=== PATIENT | male | born 1985 | race Caucasian/White ===

== ENCOUNTER 2020-03-18 16:51 | Outpatient (REF) | payer BC, MEDICAID, SELFPAY | END 2020-03-18 16:52 | disposition home or self-care (01) | LOC: HO.LAB 16:51 | PROVIDERS: PCP Internal Medicine; Visit Provider Internal Medicine | DX: Z20.828 Contact with and (suspected) exposure to other viral communicable diseases (principal) | CPT/HCPCS: C9803; U0003 ==

== ENCOUNTER → 2022-01-09 13:35 | Outpatient (BNVA) | payer SELFPAY | PROVIDERS: PCP Internal Medicine; Visit Provider Physician Assistant Medical | DX: Z02.79 Encounter for issue of other medical certificate (principal) ==

== ENCOUNTER 2022-09-18 14:31 | Emergency (ER) | payer OTHER, SELFPAY ==
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
[2022-09-18 14:43] VITALS: BP 133/70; BP 133/84; PULSE 85; PULSE 88; RESP 18; TEMP 36.4; O2SAT 96; O2SAT 98; BMI 36.5
== END 2022-09-18 16:32 | disposition home or self-care (01) ==
PROVIDERS: Emergency Provider Emergency Medicine; PCP Internal Medicine
DX: S13.4XXA Sprain of ligaments of cervical spine, initial encounter (principal); S29.012A Strain of muscle and tendon of back wall of thorax, initial encounter; V43.52XA Car driver injured in collision with other type car in traffic accident, initial encounter; Y93.89 Activity, other specified; Y92.414 Local residential or business street as the place of occurrence of the external cause; Y99.9 Unspecified external cause status
CPT/HCPCS: 72040; 72070; 99282; 99283

== ENCOUNTER 2023-02-01 15:53 | Outpatient (AMB) | payer OTHER, SELFPAY ==
[2023-02-01 16:13] VITALS: BP 110/74; PULSE 95; RESP 17; O2SAT 98; BMI 37.9
--- NOTE | 2023-02-01 16:13 | A.OFFPC_ITS ---
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 Pt has over more than 10 years without seing a PCP. 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 Accompanied by: Self / Same As Patient Allergies No Known Allergies [No Known Allergies*] Allergy (Verified 02/01/23 16:56) Medication List - Last Reconciled 02/01/23 by Puneet Michelle MD cyclobenzaprine 10 mg PO TID naproxen (Naprosyn) 500 mg PO BID Tobacco use date assessed: 02/01/23 Dental Screening Dental Screen Date: 02/01/23 Did you have a dental visit in the last 12 months?: Yes Did you have a dental problem in the last 6 months where you did not have access to dental care?: No Was dental information given to patient?: Patient has dentist HPI Executive Director Request PE HPI Details Patient comes in today for his annual physical examination and to reestablish care - He was last seen for his one and only visit here back on 12/04/2018 Patient states that he has been experiencing recurrent left knee pain for over a month now Does not recall any recent injury or trauma to his knee Also relates experiencing on and off sharp pains in his left testicle/scrotum lately - states that these occur randomly without any pattern and with no predilection to time of day States that the pain often lasts for about 2 hours before subsiding He has not noticed any swelling of his left testicle or scrotum lately, even when the pain is present States that the pain is also relieved somewhat when he takes his Cyclobenzaprine He denies any dysuria or pain or burning sensation when urinating He denies any urinary frequency or dysuria Adds that he's had a recurrent cough for over 2 weeks as well Cough is mostly non-productive and states that he has been taking OTC Dayquil PRN with only temporary relief He denies any fever or sore throat; denies any headaches or dizziness Denies any chest pains, no shortness of breath No nausea /vomiting, no abdominal pain No change in bowel habits noted PFSH Medical History (Updated 02/03/23 @ 07:20 by Puneet Michelle MD) Obesity (BMI 30-39.9) Cholecystitis without cholelithiasis Surgical History (Updated 02/03/23 @ 07:04 by Puneet Michelle MD) Hx laparoscopic cholecystectomy (~2017) Family History (Updated 02/03/23 @ 07:07 by Puneet Michelle MD) Father Diabetes mellitus Mother Anemia Social History (Updated 02/03/23 @ 07:07 by Puneet Michelle MD) Housing: House Patient Tobacco Use Status: Former Tobacco user Tobacco use type: Cigarette Years Smoked: 3 - quit in 2007 e-Cigarette/Vaping Use: Never Used service: No Current occupational status: employed Current occupation: [employer] Cognitive needs: No Hearing needs: No Vision needs: No Questionnaire PHQ-9 Over the last 2 weeks, how often have you been bothered by any of the following problems? 1. Little interest or pleasure in doing things: not at all 2. Feeling down, depressed, or hopeless: not at all 3. Trouble falling or staying asleep, or sleeping too much: not at all 4. Feeling tired or having little energy: not at all 5. Poor appetite or overeating: not at all 6. Feeling bad about yourself - or that you are a failure or have let yourself or your family down: not at all 7. Trouble concentrating on things, such as reading the newspaper or watching television: not at all 8. Moving or speaking so slowly that other people could have noticed. Or the opposite - being so fidgety or restless that you have been moving around a lot more than usual: not at all 9. Thoughts that you would be better off or of hurting yourself in some way: not at all Total score: 0 Depression Screening Interpretation: Negative Depression Screening Done: Yes 42745 - PHQ-9 Billing: Yes Source: Developed by Drs. Regan Padilla, Jenny Blakely, Rosendo Amador and colleagues, with an educational teagan from [employer]. Thrive Questionnaire Date Thrive assessed: 02/01/23 I am a: Patient What is your living situation today?: I have a steady place to live Within the past 12 months, did the food you bought not last and you didn't have the money to get more?: Never true Within the past 12 months, did you worry whether your food would run out before you got money to buy more?: Never true Do you have trouble paying for medicines?: No Do you have trouble getting transportation to medical appointments?: No Do you have trouble paying your heating and electricity bill?: No Do you have trouble taking care of your child, family member or friend?: No Do you have trouble with day-to-day activities such as bathing, preparing meals, shopping, managing finances, etc.?: No Are you currently unemployed and looking for a job?: No Are you interested in more education?: No Please select the resources that you would like help with: None Currently or been in a relationship where the following occur: no concerns reported AUDIT C Alcohol Use Questionnaire (AUDIT-C) 1. How often do you have a drink containing alcohol?: Monthly or less 2. How many drinks containing alcohol do you have on a typical day when you are drinking?: 1 or 2 3. How often do you have six or more drinks on one occasion?: Never Total Score: 1 Score Reviewed/Action Taken: Yes IZZY-7 AMB Questionnaire IZZY-7 Date IZZY - 7 assessed: 02/01/23 Feeling nervous, anxious, or on edge: 0 = Not at all Not being able to stop or control worryin = Not at all Worrying too much about different things: 0 = Not at all Trouble relaxin = Not at all Being so restless that it is hard to sit still: 0 = Not at all Becoming easily annoyed or irritable: 0 = Not at all Feeling afraid as if something awful might happen: 0 = Not at all Total IZZY-7 score (0-4 normal; 5-9 mild; 10-14 moderate; 15-21 severe): 0 Source: Developed by Drs. Regan Padilla, Jenny Blakely, Rosendo Amador and colleagues, with an educational teagan from [employer]. IZZY-7 Assessment Billing IZZY-7 Assessment Tool: IZZY-7 Assessment 22385 Review of Systems Const Denies chills, Denies fatigue, Denies fever(s), Denies headache(s), Denies malaise and Denies weakness Eyes Denies blurry vision, Denies change in vision, Denies irritation and Denies itchy eyes ENT Denies dysphagia, Denies dizziness, Denies otalgia, Denies headache(s), Denies nasal congestion, Denies neck pain, Denies odynophagia and Denies sore throat Card Denies chest pain, Denies rapid heart rate, Denies irregular heart rhythm, Denies palpitations and Denies dyspnea Resp Denies chest congestion, Reports cough (non-productive ), Denies dyspnea and Denies wheezing GI Denies abdominal pain, Denies bloating, Denies constipation, Denies dysphagia, Denies heartburn, Denies diarrhea, Denies nausea, Denies odynophagia and Denies vomiting Denies hematuria, Denies difficulty urinating, Denies dysuria, Reports testicular pain (over he left side - recurrent, sharp - see HPI for detaisl), Denies urinary frequency and Denies urinary urgency Musc Denies back pain, Denies arthralgias, Denies joint swelling, Denies muscle weakness and Denies neck pain Skin/Breast Denies change in pigmentation, Denies lesions, Denies rash and Denies unusual bruising Neuro Denies dizziness, Denies headache(s), Denies paresthesias and Denies weakness Endo Denies fatigue and Denies palpitations Aller/Immun Denies itchy eyes and Denies wheezing Physical exam (Primary Care) Vital Signs: Last Vital Signs Pulse 95 02/01/23 16:13 Resp 17 02/01/23 16:13 BP 110/74 02/01/23 16:13 Pulse Ox 98 02/01/23 16:13 Oxygen Delivery Method Room Air 02/01/23 16:13 BMI result Body Mass Index 37.9 Tobacco/Smoking Status: Tobacco use Status Tobacco use date assessed 02/01/23 02/01/23 16:31 Patient Tobacco Use Status Never used Tobacco 02/01/23 16:31 e-Cigarette/Vaping Use Never Used 02/01/23 16:31 PHQ-9: PHQ-9 Score PHQ-9: Total score 0 02/01/23 23:39 Depression Screening Interpretation: Negative Thrive Assessment: Date of Thrive Assessment Date Thrive assessed 02/01/23 02/01/23 16:38 Currently or been in a relationship where the following occur: no concerns reported Const General: no acute distress, alert and awake Orientation/consciousness: patient oriented x3 [facility] Head: Yes normocephalic and Yes atraumatic Ears: external ears normal, TM's normal bilaterally and EAC's normal General nose exam: No nasal discharge present Face and sinus: Yes normal facial exam and Yes sinuses nontender Teeth and gingiva: dentition normal Throat: Yes posterior oropharynx normal and Yes abnormal tonsil (tonsils are slightly enlarged / prominent bilaterally) Eyes Eyelids: Yes eyelids normal Conjunctivae: conjunctivae normal Pupils: Equal, round and reactive pupils present EOM: EOMs intact bilaterally Neck Neck: Yes no lymphadenopathy and Yes supple Thyroid: Thyroid normal Resp Auscultation: clear to auscultation bilaterally, no rales and no wheezes Cardio Rate: regular rate Rhythm: regular rhythm Heart sounds: no murmurs GI Palpation (GI): Soft to palpation, nontender and No hepatosplenomegaly present Auscultation: normal bowel sounds General: Yes no CVA tenderness Penis: circumcised Scrotum: scrotum normal, testes descended bilaterally, no masses and no scrotal swelling Testes: Testes normal, no epidiymal tenderness, no testicular mass, no testicular swelling and no testicular tenderness Back/Spine/Pelvis Back: no CVA tenderness Thoracic/Lumbar Spine: thoracic and lumbar spine normal to inspection Skin Lesions: no lesions Rashes: no rashes Neuro General: patient oriented x3, moves all extremities, no focal motor deficits and CN's II-XI intact bilaterally Cranial nerves: Yes Equal, round and reactive pupils present Cognition (Neuro): normal cognition Gait exam (Neuro): Normal gait present Extrem General: Yes no clubbing, cyanosis or edema Assessment and Plan Assessment & Plan (1) Annual physical exam: Code(s): Z00.00 - Encounter for general adult medical examination without abnormal findings Plan: Check labs (2) Left testicular pain: Code(s): N50.812 - Left testicular pain Plan: Patient is advised that his current testicular exam is normal and that the recurrent pain that he has been experiencing in his left testicle is most likely due to muscle spasm around his inguinal area Advised that there is no palpable mass or swelling in his testicle and that imaging studies will likely not be helpful at this time Is instructed to get his labs done JUAN and advised that if his urinalysis or labs show anything unusual that might be related to his current symptoms, then we can send him then for further tests for exams for further evaluation He is though advised to call if his symptoms persist or get worse and we can consider referring him to urology for further evaluation then (3) Tonsillar enlargement: Code(s): J35.1 - Hypertrophy of tonsils Plan: Patient denies any sore throat or dysphagia - advised that his slight bilateral tonsillar enlargement/prominence her most likely due to a recent viral infection and should gradually resolve on their own after some time (4) Cough: Code(s): R05.9 - Cough, unspecified Qualifiers: Cough type: acute Qualified Code(s): R05.1 - Acute cough Plan: Advised this is most likely due to a recent viral respiratory tract infection He can continue OTC DayQuil or OTC cough medications PRN for symptomatic relief; is also advised to call if his cough persists or gets worse over the next couple of weeks (5) Obesity (BMI 30-39.9): Code(s): E66.9 - Obesity, unspecified Plan: Reinforced diet/exercise as tolerated/ lose weight Plan Follow up in 3 months Orders: Orders Comprehensive [place]. Panel Fast 02/02/23 Z00.00 - Encounter for general adult medical examination without abnormal findings TSH reflex Free T4 02/02/23 E78.00 - Pure hypercholesterolemia, unspecified, Z00.00 - Encounter for general adult medical examination without abnormal findings Vitamin D 25-OH Total 02/02/23 E55.9 - Vitamin D deficiency, unspecified, Z00.00 - Encounter for general adult medical examination without abnormal findings Complete Blood Count Auto Diff 02/02/23 Z00.00 - Encounter for general adult medical examination without abnormal findings Lipid Panel 02/02/23 E78.00 - Pure hypercholesterolemia, unspecified, Z00.00 - Encounter for general adult medical examination without abnormal findings UA CC w/rflx Micro + Cult 02/02/23 R30.0 - Dysuria, Z00.00 - Encounter for general adult medical examination without abnormal findings Erythrocyte Sedimentation Rate 02/02/23 N50.812 - Left testicular pain, Z00.00 - Encounter for general adult medical examination without abnormal findings Coding Level of Care Code New Pt Prev Care 18-39yr([id number] Diagnoses Annual physical exam Z00.00 Left testicular pain N50.812 Tonsillar enlargement J35.1 Acute cough R05.1 Cough type: acute Obesity (BMI 30-39.9) E66.9 Additional Codes IZZY-7 Assessment Billing - IZZY-7 Assessment Tool: IZZY-7 Assessment [id number] ([id number])
== END 2023-02-01 17:06 | disposition home or self-care (01) ==
PROVIDERS: PCP Internal Medicine; Visit Provider Internal Medicine
DX: Z00.00 Encounter for general adult medical examination without abnormal findings (principal); N50.812 Left testicular pain; J35.1 Hypertrophy of tonsils; R05.1 Acute cough; E66.9 Obesity, unspecified
CPT/HCPCS: 99385

== ENCOUNTER 2023-02-02 07:30 | Outpatient (REF) | payer OTHER, SELFPAY ==
[2023-02-02 09:48] LABS: Anion Gap 13 (12-20); Blood Urea Nitrogen 16 mg/dL (9-16); Calcium 9.1 mg/dL (8.4-10.2); Carbon Dioxide 22 mmol/L (22-29); Chloride 110 mmol/L (96-108); Estimated Glomerular Filt Rate > 60; Potassium 3.9 mmol/L (3.3-5.1); Sodium 141 mmol/L (135-145)
== END 2023-02-02 07:31 | disposition home or self-care (01) ==
LOC: HO.LAB 07:30
PROVIDERS: PCP Internal Medicine; Visit Provider Internal Medicine
DX: Z00.00 Encounter for general adult medical examination without abnormal findings (principal); N50.812 Left testicular pain; E78.00 Pure hypercholesterolemia, unspecified; R30.0 Dysuria; E55.9 Vitamin D deficiency, unspecified
CPT/HCPCS: 36415; 80051; 82310; 82565; 84520

== ENCOUNTER 2023-04-10 19:14 | Emergency (ER) | payer OTHER, SELFPAY ==
--- NOTE | ~2023-04-10 | XR_ITS ---
EXAMINATION: XR KNEE, RIGHT CLINICAL INFORMATION: Pain COMPARISON: Previous x-ray from 1999 and TECHNIQUE: Four views of the right knee. FINDINGS: Bone alignment is normal. No fracture or dislocation. 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 Joint spaces are normal. Soft tissues are normal. XR/XR knee RT 4V IMPRESSION: No acute findings.
--- NOTE | ~2023-04-10 | XR_ITS ---
EXAMINATION: XR KNEE, LEFT CLINICAL INFORMATION: Pain COMPARISON: None available. TECHNIQUE: Four views of the left knee. FINDINGS: No fracture or joint effusion. Alignment is anatomic. Joint spaces are maintained. No abnormal soft tissue calcification. XR/XR knee LT 4V IMPRESSION: Normal left knee.
--- NOTE | ~2023-04-10 | XR_ITS ---
EXAMINATION: XR ANKLE, RIGHT CLINICAL INFORMATION: Pain COMPARISON: None available. TECHNIQUE: AP, lateral, and mortise views of the right ankle. FINDINGS: No fracture. Alignment is anatomic. No erosions. Joint spaces are maintained. Soft tissues are normal. XR/XR ankle RT 2V IMPRESSION: Normal right ankle.
--- NOTE | ~2023-04-10 | XR_ITS ---
EXAMINATION: XR FOOT, RIGHT CLINICAL INFORMATION: Pain COMPARISON: None available. TECHNIQUE: AP, lateral, and oblique views of the right foot. FINDINGS: The bones and soft tissues are normal. No fracture. Alignment is anatomic. Joint spaces are maintained. XR/XR foot RT 2V IMPRESSION: Normal right foot.
[2023-04-10 19:35] VITALS: BP 134/84; PULSE 85; RESP 18; TEMP 36.7; O2SAT 97; BMI 36.4
--- NOTE | 2023-04-10 19:38 | ED.GENADULT ---
HPI - General Adult General Chief complaint: General Medical Stated complaint: florecita knee and hand pain Time Seen by Provider: 04/10/23 21:06 Source: patient, RN notes reviewed and old records reviewed Mode of arrival: ambulatory Limitations: no limitations History of Present Illness HPI narrative: 37-year-old male presents for evaluation of mostly right ankle pain but also complains of bilateral knee pain Patient reports that he has had worsening knee pain for several weeks His right ankle pain started 2 weeks ago and he believes he rolled his ankle He states that he has been able to walk but has been tying his shoes titer because ?the pressure help the pain a little bit. ? 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 His pain is currently 8/10 Related Data Previous Rx's Medication Instructions Recorded cyclobenzaprine 10 mg tablet 10 mg PO TID #10 tabs 09/18/22 naproxen 500 mg tablet (Naprosyn) 500 mg PO BID #20 tabs 09/18/22 ibuprofen 600 mg tablet 600 mg PO Q6H PRN pain #20 tabs 04/10/23 Allergies Allergy/AdvReac Type Severity Reaction Status Date / Time No Known Allergies Allergy Verified 02/01/23 16:56 [No Known Allergies*] Review of Systems Constitutional: Constitutional: Denies chills and Denies fever(s) Cardiovascular: Cardiovascular: Denies chest pain and Denies dyspnea Respiratory: Respiratory: Denies cough and Denies dyspnea Gastrointestinal: Gastrointestinal: Denies abdominal pain, Denies nausea and Denies vomiting Musculoskeletal: Musculoskeletal: Denies back pain, Reports arthralgias, Reports joint swelling and Reports limited range of motion Integumentary/Breasts: Skin/Breast: Denies rash PMF Past Medical History Medical History (Updated 04/11/23 @ 00:01 by [facility]) Obesity (BMI 30-39.9) Cholecystitis without cholelithiasis Surgical History (Updated 02/03/23 @ 07:04 by Puneet Michelle MD) Hx laparoscopic cholecystectomy (~2017) Family History Family History (Updated 02/03/23 @ 07:07 by Puneet Michelle MD) Father Diabetes mellitus Mother Anemia Social History Social History (Updated 02/03/23 @ 07:07 by Puneet Michelle MD) Housing: House Patient Tobacco Use Status: Former Tobacco user Tobacco use type: Cigarette Years Smoked: 3 - quit in 2007 e-Cigarette/Vaping Use: Never Used Advance Directives: No Advance Directives Information Provided: No service: No Current occupational status: employed Current occupation: Carpentry Cognitive needs: No Hearing needs: No Vision needs: No Physical Exam ED Vital Signs: Vital Signs - 24 hr 04/10/23 19:35 04/10/23 20:43 Temperature 98.0 F Pulse Rate 85 76 Respiratory Rate 18 18 Blood Pressure 134/84 120/76 Pulse Oximetry 97 99 Oxygen Delivery Method Room Air Room Air BMI result Body Mass Index 36.4 Const General: healthy appearing, comfortable, no acute distress, alert and awake Nutritional Appearance: well nourished Orientation/consciousness: patient oriented x3 HENMT Head: Yes normocephalic and Yes atraumatic Eyes Eyelids: Yes eyelids normal Conjunctivae: conjunctivae normal Sclerae: sclerae normal Corneas: corneas normal Pupils: Equal, round and reactive pupils present EOM: EOMs intact bilaterally Neck Neck: Yes full ROM Resp Effort & Inspection: normal respiratory effort, able to speak in complete sentences and not labored GI Inspection: No distended Palpation (GI): Soft to palpation, not firm, nontender, no guarding and not rigid Skin General skin exam: elasticity normal Neuro General: patient oriented x3 Cranial nerves: Yes Equal, round and reactive pupils present and Yes Bilaterally intact EOM present Cognition (Neuro): normal cognition Extrem Other: Patient has no obvious deformities the knees bilaterally. He has good range of motion flexion extension. He has no tenderness to the right lateral malleolus of the right ankle. He does have tenderness inferior to this region. There is no significant edema. The patient remains with good range of motion. No other areas of tenderness to the right lower extremity or foot Course Course Course Narrative: RME: 37 yold female presents to the ED for bilateral knee pain and right anklke pain. Hear clicking shounds. patient states no trauma. xrayys ordered Medications Administered Discontinued Medications Generic Name Dose Route Start Last Admin Trade Name Freq PRN Reason Stop Dose Admin Ibuprofen 600 mg 04/10/23 21:14 04/10/23 21:20 Ibuprofen 600 Mg Tablet PO 04/10/23 21:15 600 mg ONCE ONE Administration Medical Decision Making Medical Decision Making [facility] Narrative: 37-year-old male presents for evaluation of chronic bilateral knee pain and more acute right ankle pain. X-rays are all negative for acute findings. He likely has a sprain right ankle and possibly overuse injury causing his right knee pain chronically. Will treat with ibuprofen Differential Diagnosis Differential Diagnoses: The differential diagnosis associated with the presentation includes Osteoarthritis Rheumatoid arthritis Ankle sprain Ankle fracture Independent Interpretation I performed an independent interpretation of an: Plain X-Ray (Agree with Radiology interpretation) Radiology Impression Discussion of test interpretation with radiology: I have reviewed the radiologist's reading. Radiologist Impression: No acute findings of the knees bilaterally or right ankle/foot Discharge Plan Discharge Clinical Impression: Bilateral chronic knee pain, Right ankle sprain Patient Disposition: Home, Self-Care Instructions: Ankle Sprain (ED) Additional Instructions: All of your x-rays were without significant findings. This includes your knees, right ankle and right foot. You likely have a right ankle sprain. Continue to use ibuprofen for pain. Elevate the leg above your heart while resting Follow-up with your primary doctor Prescriptions: New ibuprofen 600 mg tablet 600 mg PO Q6H PRN (Reason: pain) Qty: 20 0RF No Action naproxen [Naprosyn] 500 mg tablet 500 mg PO BID Qty: 20 0RF cyclobenzaprine 10 mg tablet 10 mg PO TID Qty: 10 0RF Interventions: ED Discharge Assessment Last Done: 04/10/23 21:33 Discharge Date/Time: 04/10/23 21:33
[2023-04-10 20:43] VITALS: BP 120/76; PULSE 76; RESP 18; O2SAT 99
[2023-04-10] MEDS: Ibuprofen 600 MG TABLET PO (21:20)
== END 2023-04-10 21:33 | disposition home or self-care (01) ==
PROVIDERS: Emergency Provider Student in an Organized Health Care Education/Training Program; PCP Internal Medicine
DX: M25.562 Pain in left knee (principal); M25.561 Pain in right knee; M25.571 Pain in right ankle and joints of right foot
CPT/HCPCS: 73564; 73600; 73620; 99283

== ENCOUNTER 2023-05-07 15:05 | Outpatient (AMB) | payer OTHER, SELFPAY ==
[2023-05-07 15:07] VITALS: BP 130/86; PULSE 92; O2SAT 97; BMI 38.0
--- NOTE | 2023-05-07 15:07 | A.OFFPC_ITS ---
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 Accompanied by: Self / Same As Patient Allergies No Known Allergies [No Known Allergies*] Allergy (Verified 05/07/23 15:26) Medication List - Last Reconciled 05/07/23 by Puneet Michelle MD cyclobenzaprine 10 mg PO TID ibuprofen 600 mg PO Q6H PRN Tobacco use date assessed: 05/07/23 Dental Screening Dental Screen Date: 05/07/23 Did you have a dental visit in the last 12 months?: Yes Did you have a dental problem in the last 6 months where you did not have access to dental care?: No Was dental information given to patient?: Patient has dentist HPI 3 month f/u HPI Details Patient comes in today for his follow up visit States that he has been experiencing recurrent knee pain lately - notes that the pain is mostly over the prepatellar/suprapatellar areas and mostly when he is going down some stairs Relates that he went to the ER a few weeks ago with similar complaints and had x-rays of both knees done, which reportedly came out normal He does not recall and history of injury or trauma to his knees States that he feels okay otherwise He denies any headaches or dizziness Denies any chest pains, no SOB No nausea/vomiting, no abdominal pain No change in bowel habits noted He still has not been able to get his previously ordered fasting labs done yet [facility] Medical History Obesity (BMI 30-39.9) Cholecystitis without cholelithiasis Surgical History Hx laparoscopic cholecystectomy (~2017) Family History Father Diabetes mellitus Mother Anemia Social History Housing: House Patient Tobacco Use Status: Former Tobacco user Tobacco use type: Cigarette Years Smoked: 3 - quit in 2007 e-Cigarette/Vaping Use: Never Used service: No Current occupational status: employed Current occupation: Carpentry Cognitive needs: No Hearing needs: No Vision needs: No Questionnaire PHQ-9 Over the last 2 weeks, how often have you been bothered by any of the following problems? 1. Little interest or pleasure in doing things: not at all 2. Feeling down, depressed, or hopeless: not at all 3. Trouble falling or staying asleep, or sleeping too much: not at all 4. Feeling tired or having little energy: not at all 5. Poor appetite or overeating: not at all 6. Feeling bad about yourself - or that you are a failure or have let yourself or your family down: not at all 7. Trouble concentrating on things, such as reading the newspaper or watching television: not at all 8. Moving or speaking so slowly that other people could have noticed. Or the opposite - being so fidgety or restless that you have been moving around a lot more than usual: not at all 9. Thoughts that you would be better off or of hurting yourself in some way: not at all Total score: 0 Depression Screening Interpretation: Negative Depression Screening Done: Yes 40301 - PHQ-9 Billing: Yes Source: Developed by Drs. Regan Padilla, Jenny Blakely, Rosendo Amador and colleagues, with an educational teagan from [employer]. Thrive Questionnaire Date Thrive assessed: 05/07/23 I am a: Patient What is your living situation today?: I have a steady place to live Within the past 12 months, did the food you bought not last and you didn't have the money to get more?: Never true Within the past 12 months, did you worry whether your food would run out before you got money to buy more?: Never true Do you have trouble paying for medicines?: No Do you have trouble getting transportation to medical appointments?: No Do you have trouble paying your heating and electricity bill?: No Do you have trouble taking care of your child, family member or friend?: No Do you have trouble with day-to-day activities such as bathing, preparing meals, shopping, managing finances, etc.?: No Are you currently unemployed and looking for a job?: No Are you interested in more education?: No Please select the resources that you would like help with: None Currently or been in a relationship where the following occur: no concerns reported AUDIT C Alcohol Use Questionnaire (AUDIT-C) 1. How often do you have a drink containing alcohol?: Monthly or less 2. How many drinks containing alcohol do you have on a typical day when you are drinking?: 1 or 2 3. How often do you have six or more drinks on one occasion?: Never Total Score: 1 Score Reviewed/Action Taken: Yes IZZY-7 AMB Questionnaire IZZY-7 Date IZZY - 7 assessed: 05/07/23 Feeling nervous, anxious, or on edge: 0 = Not at all Not being able to stop or control worryin = Not at all Worrying too much about different things: 0 = Not at all Trouble relaxin = Not at all Being so restless that it is hard to sit still: 0 = Not at all Becoming easily annoyed or irritable: 0 = Not at all Feeling afraid as if something awful might happen: 0 = Not at all Total IZZY-7 score (0-4 normal; 5-9 mild; 10-14 moderate; 15-21 severe): 0 Source: Developed by Drs. Regan Padilla, Jenny Blakely, Rosendo Amador and colleagues, with an educational teagan from [employer]. IZZY-7 Assessment Billing IZZY-7 Assessment Tool: IZZY-7 Assessment 54947 Review of Systems Const Denies chills, Denies fatigue, Denies fever(s) and Denies headache(s) ENT Denies dysphagia, Denies dizziness, Denies otalgia, Denies headache(s), Denies neck pain, Denies odynophagia and Denies sore throat Card Denies chest pain, Denies palpitations and Denies dyspnea Resp Denies cough and Denies dyspnea GI Denies abdominal pain, Denies constipation, Denies dysphagia, Denies heartburn, Denies diarrhea, Denies nausea, Denies odynophagia and Denies vomiting Denies dysuria, Denies nocturia and Denies urinary frequency Musc Reports arthralgias (both knees, on and off lately - see HPI) and Denies neck pain Skin/Breast Denies rash Neuro Denies dizziness and Denies headache(s) Endo Denies fatigue and Denies palpitations Physical exam (Primary Care) Vital Signs: Last Vital Signs Pulse 92 05/07/23 15:07 BP 130/86 05/07/23 15:07 Pulse Ox 97 05/07/23 15:07 Oxygen Delivery Method Room Air 05/07/23 15:07 BMI result Body Mass Index 38.0 Tobacco/Smoking Status: Tobacco use Status Tobacco use date assessed 05/07/23 05/07/23 15:13 Patient Tobacco Use Status Former Tobacco user 05/07/23 15:13 Tobacco use type Cigarette 05/07/23 15:13 e-Cigarette/Vaping Use Never Used 05/07/23 15:13 PHQ-9: PHQ-9 Score PHQ-9: Total score 0 05/07/23 15:13 Depression Screening Interpretation: Negative Thrive Assessment: Date of Thrive Assessment Date Thrive assessed 05/07/23 05/07/23 15:13 Currently or been in a relationship where the following occur: no concerns reported Const General: no acute distress and alert HENMT Ears: TM's normal bilaterally and EAC's normal Throat: Yes posterior oropharynx normal and Yes tonsils normal (no TP congestion) Neck Neck: Yes no lymphadenopathy and Yes supple Resp Auscultation: clear to auscultation bilaterally, no rales and no wheezes Cardio Rate: regular rate Rhythm: regular rhythm Heart sounds: no murmurs GI Palpation (GI): Soft to palpation, nontender and No hepatosplenomegaly present Skin Rashes: no rashes Extrem General: Yes no clubbing, cyanosis or edema Right lower extremity: knee Details: tenderness Location: of the patella Details: superiorly; no swelling Left lower extremity: knee Details: tenderness Location: of the patella Details: superiorly; no swelling Assessment and Plan Assessment & Plan (1) Bilateral knee pain: Code(s): M25.561 - Pain in right knee; M25.562 - Pain in left knee Qualifiers: Chronicity: unspecified Qualified Code(s): M25.561 - Pain in right knee; M25.562 - Pain in left knee Plan: X-rays of both knees done a few weeks ago in March 2023 came out normal, so they do not provide any helpful info as to patient's knee pain Have discussed with patient that his knee pain are likey related to his weight and may be due to bursitis, which would not normally show up on x-rays Will refer him to orthopedics for further evaluation and recommendations/josué ghotra (2) Obesity (BMI 30-39.9): Code(s): E66.9 - Obesity, unspecified Plan: Reinforced diet/exercise as tolerated/ lose weight - patient is cautioned that he has gained some weight since his last visit He was not able to get his previously ordered labs done yet - will update his lab orders and have him go and get these done JUAN Plan Follow up in 4 months Orders: Referrals Orthopedics Referral M25.561 - Pain in right knee, M25.562 - Pain in left knee Coding Level of Care Code Est Pt Level 3 (12602) Diagnoses Pain in both knees, unspecified chronicity M25.561; M25.562 Chronicity: unspecified Obesity (BMI 30-39.9) E66.9 Additional Codes IZZY-7 Assessment Billing - IZZY-7 Assessment Tool: IZZY-7 Assessment 77217 ([id number])
== END 2023-05-07 15:41 | disposition home or self-care (01) ==
PROVIDERS: PCP Internal Medicine; Visit Provider Internal Medicine
DX: M25.561 Pain in right knee (principal); E66.9 Obesity, unspecified; Z68.38 Body mass index [BMI] 38.0-38.9, adult; M25.562 Pain in left knee
CPT/HCPCS: 99213

== ENCOUNTER 2023-05-08 08:40 | Outpatient (REF) | payer OTHER, SELFPAY ==
[2023-05-08 09:05] LABS: MANUAL DIFF FLAG NO
[2023-05-08 09:34] LABS: Basophils Percent Auto 0.5 % (0-2); Eosinophils Absolute Auto 0.3 X10*3/uL (0.0-0.4); Eosinophils Percent Auto 3.6 % (0-4); Hematocrit 44.6 % (42.0-52.0); Hemoglobin 14.6 g/dl (14.0-18.0); Imm Gran Abs Auto 0.05 X10*3/uL (0.00-0.03); Imm Gran Pct Auto 0.6 % (0.0-0.4); Lymphocytes Absolute Auto 2.5 X10*3/uL (1.2-4.9); Lymphocytes Percent Auto 31.2 % (20-40); Mean Corpuscular HGB Conc 32.7 g/dl (31.0-36.0); Mean Corpuscular Hemoglobin 27.2 pg (27.0-33.0); Mean Corpuscular Volume 83.1 fL (80.0-98.0); Mean Platelet Volume 10.5 fL (9.4-12.4); Monocytes Absolute Auto 0.6 X10*3/uL (0.1-1.2); Monocytes Percent Auto 7.4 % (2-11); Neutrophils Absolute Auto 4.5 x10*3/uL (2.0-8.3); Neutrophils Percent Auto 56.7 % (45-73); Platelet Count 223 X10*3/uL (160-400); Red Blood Count 5.37 X10*6/uL (4.60-5.80); Red Cell Distribution Width 12.8 % (11.0-16.0)
[2023-05-08 09:51] LABS: Appearance Urine Clear; Color Urine Yellow; Glucose Urine UA Negative (Negative); Leukocyte Esterase Urine Negative (Negative); Nitrite Urine Negative (Negative); PH 5.5 (5.0-9.0); Specific Gravity - Urine 1.025 (1.005-1.025); Urine Blood Negative (Negative); Urine Ketones Negative (Negative); Urine Protein Negative (Neg-Trace)
[2023-05-08 10:14] LABS: Alanine Aminotransferase 58 U/L (0-40); Albumin Level 4.1 g/dL (3.5-5.0); Alkaline Phosphatase 75 U/L (39-117); Anion Gap 11 (12-20); Aspartate Amino Transferase 25 U/L (5-37); Bilirubin Total 0.4 mg/dL (0.0-1.0); Blood Urea Nitrogen 23 mg/dL (9-16); Calcium 9.5 mg/dL (8.4-10.2); Carbon Dioxide 23 mmol/L (22-29); Chloride 108 mmol/L (96-108); Cholesterol 194 mg/dL (<200); Estimated Glomerular Filt Rate > 60; Glucose Fasting 116 mg/dL (60-99); HDL Cholesterol 26 mg/dL (>40); LDL Cholesterol Calculated 130 mg/dL (<100); Potassium 3.9 mmol/L (3.3-5.1); Sodium 138 mmol/L (135-145); Total Protein 7.9 g/dL (6.5-8.0); Triglycerides 190 mg/dL (<150)
[2023-05-08 10:23] LABS: Erythrocyte Sedimentation Rate 10 MM/HR (0-15)
[2023-05-08 10:33] LABS: TSH reflex Free T4 1.44 uIU/mL (0.32-4.0); Vitamin D 25-OH Total 14.9 ng/mL (>30)
== END 2023-05-08 08:41 | disposition home or self-care (01) ==
LOC: HO.LAB 08:40
PROVIDERS: PCP Internal Medicine; Visit Provider Internal Medicine
DX: Z00.00 Encounter for general adult medical examination without abnormal findings (principal); R30.0 Dysuria; E55.9 Vitamin D deficiency, unspecified; N50.812 Left testicular pain; E78.00 Pure hypercholesterolemia, unspecified
CPT/HCPCS: 36415; 80053; 80061; 81003; 82306; 84443; 85025; 85652

== ENCOUNTER 2023-05-20 09:08 | Outpatient (AMB) | payer OTHER, SELFPAY ==
--- NOTE | 2023-05-20 09:12 | MHC.OFFVIS ---
Intake Vital Signs 05/20/23 09:13 Height 5 ft 9 in Weight 257 lb BMI 37.9 Intake Visit Reasons: New Pt - Bilateral Knee Pain Intake Note: Rosalio is a 37 year old male who presents today as a new patient with complaints of bilateral knee pain. Patient reports ongoing knee pain for about 1 year now. Pain is felt pre/Subpatellar , pain is mostly felt while going down stairs. 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 He takes ibuprofen and home exercises which has helped. Denies numbness and tingling. Allergies No Known Allergies [No Known Allergies*] Allergy (Verified 05/07/23 15:26) HPI New Pt - Bilateral Knee Pain HPI Details Rosalio is a 37 year old man who presents with complaints of ~1 year of bilateral knee pain. He complains of pain with daily activity, worse with walking or using stairs. 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 He performs some at-home exercises and takes Ibuprofen, with some relief. [facility] Medical History Obesity (BMI 30-39.9) Cholecystitis without cholelithiasis Surgical History Hx laparoscopic cholecystectomy (~2017) Family History Father Diabetes mellitus Mother Anemia Social History Housing: House Patient Tobacco Use Status: Former Tobacco user Tobacco use type: Cigarette Years Smoked: 3 - quit in 2007 e-Cigarette/Vaping Use: Never Used service: No Current occupational status: employed Current occupation: Carpentry Cognitive needs: No Hearing needs: No Vision needs: No Review of Systems Const All systems reviewed & are unremarkable except as noted in HPI and below Physical Exam Vital Signs: BMI result Body Mass Index 37.9 Const General: no acute distress, alert and awake Orientation/consciousness: patient oriented x3 HEENT Head: Yes normocephalic and Yes atraumatic Eyes EOM: EOMs intact bilaterally Resp Effort & Inspection: normal respiratory effort and able to speak in complete sentences Cardio Jugular venous distension: no JVD Skin General skin exam: turgor normal Rashes: no rashes Neuro General: patient oriented x3 Extrem Other: Left retropatellar TTP No effusion FUll ROm Psych Appearance: grossly normal Affect: normal affect Attitude: cooperative Results Reviewed Results Reviewed: I personally reviewed relevant radiographs. Nl radiographs bilateral knees Assessment & Plan Assessment & Plan (1) Anterior knee pain: Code(s): M25.569 - Pain in unspecified knee Plan: Anterior knee pain Discussed knee meachnics DOing well Can follow up if pain returns Plan Prepared for Butch Mercer MD by Doc Pimentel, medical information officer, on 05/20/23 at 9:18 AM, EST. Coding Level of Care Code New Pt Level 3 (67755) Diagnoses Anterior knee pain M25.569
[2023-05-20 09:13] VITALS: BMI 37.9
== END 2023-05-20 09:47 | disposition home or self-care (01) ==
PROVIDERS: PCP Internal Medicine; Visit Provider Orthopaedic Surgery
DX: M25.561 Pain in right knee (principal); M25.562 Pain in left knee
CPT/HCPCS: 99203

== ENCOUNTER → 2023-05-20 09:08 | Outpatient (BNVA) | payer OTHER, SELFPAY | PROVIDERS: PCP Internal Medicine; Visit Provider Orthopaedic Surgery | DX: M25.569 Pain in unspecified knee (principal) | CPT/HCPCS: 99202 ==

== ENCOUNTER 2023-10-08 10:15 | Outpatient (AMB) | payer OTHER, SELFPAY ==
[2023-10-08 10:16] VITALS: BP 118/70; PULSE 66; O2SAT 98; BMI 35.6
--- NOTE | 2023-10-08 10:16 | A.OFFPC_ITS ---
Vital Signs 10/08/23 10:16 Height 5 ft 9 in Weight 241 lb 0.8 oz BMI 35.6 BP 118/70 Blood Pressure Location Lt brachial Position Sitting Pulse 66 Pulse Source Pulse Oximeter Pulse Oximetry (%) 98 Oxygen Delivery Method Room Air Intake Visit Reasons: Follow Up Deputy Clerk Required: No Allergies No Known Allergies [No Known Allergies*] Allergy (Verified 10/08/23 10:44) Medication List - Last Reconciled 10/08/23 by Puneet Michelle MD ibuprofen 600 mg PO Q6H PRN Tobacco use date assessed: 10/08/23 Dental Screening Dental Screen Date: 05/07/23 HPI Follow Up HPI Details Patient comes in today for his follow up visit States that he currently feels okay He was seen by orthopedics for his knees back in April 2023 - was advised then to just continue with his knee strengthening exercises (which have been helping) and Ibuprofen PRN X-rays of the knees done at the time came out grossly normal Patient states that he has lost a lot of weight since his last visit and this also has apparently helped a lot with his knee issues He denies any headaches or dizziness Denies any chest pains, no SOB No nausea/vomiting, no abdominal pain No change in bowel habits noted He would also like to know how he did on his labs done back in April 2023 [facility] Medical History (Updated 10/08/23 @ 10:56 by Puneet Michelle MD) Vitamin D deficiency Mixed hyperlipidemia Impaired fasting glucose Obesity (BMI 30-39.9) Cholecystitis without cholelithiasis Surgical History (Updated 10/08/23 @ 10:56 by Puneet Michelle MD) Hx laparoscopic cholecystectomy (~2017) Family History Father Diabetes mellitus Mother Anemia Social History Housing: House Patient Tobacco Use Status: Former Tobacco user Tobacco use type: Cigarette Years Smoked: 3 - quit in 2007 e-Cigarette/Vaping Use: Never Used service: No Current occupational status: employed Current occupation: Carpentry Cognitive needs: No Hearing needs: No Vision needs: No Questionnaire Thrive Questionnaire Date Thrive assessed: 05/07/23 AUDIT C Alcohol Use Questionnaire (AUDIT-C) 1. How often do you have a drink containing alcohol?: Monthly or less 2. How many drinks containing alcohol do you have on a typical day when you are drinking?: 1 or 2 3. How often do you have six or more drinks on one occasion?: Never Total Score: 1 Score Reviewed/Action Taken: Yes IZZY-7 AMB Questionnaire IZZY-7 Date IZZY - 7 assessed: 05/07/23 Source: Developed by Drs. Regan Padilla, Jenny Blakely, Rosendo Amador and colleagues, with an educational teagan from [employer]. Review of Systems Const Denies chills, Denies fatigue, Denies fever(s) and Denies headache(s) ENT Denies dysphagia, Denies dizziness, Denies otalgia, Denies headache(s), Denies neck pain, Denies odynophagia and Denies sore throat Card Denies chest pain, Denies palpitations and Denies dyspnea Resp Denies cough and Denies dyspnea GI Denies abdominal pain, Denies constipation, Denies dysphagia, Denies heartburn, Denies diarrhea, Denies nausea, Denies odynophagia and Denies vomiting Denies dysuria, Denies nocturia and Denies urinary frequency Musc Denies back pain, Reports arthralgias (over both knees - feels that they have improved lately) and Denies neck pain Skin/Breast Denies rash Neuro Denies dizziness and Denies headache(s) Endo Denies fatigue and Denies palpitations Physical exam (Primary Care) Vital Signs: Last Vital Signs Pulse 66 10/08/23 10:16 BP 118/70 10/08/23 10:16 Pulse Ox 98 10/08/23 10:16 Oxygen Delivery Method Room Air 10/08/23 10:16 BMI result Body Mass Index 35.6 Tobacco/Smoking Status: Tobacco use Status Tobacco use date assessed 10/08/23 10/08/23 10:17 Patient Tobacco Use Status Former Tobacco user 10/08/23 10:17 Tobacco use type Cigarette 10/08/23 10:17 e-Cigarette/Vaping Use Never Used 10/08/23 10:17 Thrive Assessment: Date of Thrive Assessment Date Thrive assessed 05/07/23 10/08/23 10:17 Const General: no acute distress and alert HENMT Ears: TM's normal bilaterally and EAC's normal Throat: Yes posterior oropharynx normal and Yes tonsils normal (no TP congestion) Neck Neck: Yes no lymphadenopathy and Yes supple Thyroid: Thyroid normal Resp Auscultation: clear to auscultation bilaterally, no rales and no wheezes Cardio Rate: regular rate Rhythm: regular rhythm Heart sounds: no murmurs GI Palpation (GI): Soft to palpation and nontender Auscultation: normal bowel sounds General: Yes no CVA tenderness Back/Spine/Pelvis Back: no CVA tenderness Skin Rashes: no rashes Extrem General: Yes no clubbing, cyanosis or edema Results Reviewed Results Reviewed: Laboratory Tests 02/02/23 05/08/23 05/08/23 Unknown 09:04 Unknown WBC 8.0 Hgb 14.6 Hct 44.6 Plt Count 223 ESR 10 Sodium 141 138 Potassium 3.9 3.9 Creatinine 1.06 1.19 Estimated GFR > 60 > 60 Fasting Glucose 116 H Calcium 9.1 9.5 AST 25 ALT 58 H Triglycerides 190 H Cholesterol 194 LDL Cholesterol, Calc 130 H HDL Cholesterol 26 L 25-OH Vitamin D Total 14.9 L TSH 1.44 Ur Specific [place] 1.025 Urine Protein Negative Urine Glucose (UA) Negative Urine Blood Negative Urine Nitrite Negative Ur Leukocyte Esterase Negative Assessment and Plan Assessment & Plan (1) Mixed hyperlipidemia: Code(s): E78.2 - Mixed hyperlipidemia Plan: Results of his labs done back in April 2023 reviewed and discussed with patient - he is advised that his cholesterol levels have increased significantly compared to his previous numbers in 2019 Reinforced low cholesterol diet Is advised that as he has lost a lot of weight since his last visit, this will also hopefully have improved with his weight loss Will have patient recheck his labs and fasting lipids in 4 months for follow up (2) Impaired fasting glucose: Code(s): R73.01 - Impaired fasting glucose Plan: He is advised that his FBS was also elevated at 116 mg/dl on his labs done back in April 2023 and again would hopefully have also improved with his recent weight loss Reinforced low calorie/low carb diet Will have patient recheck his FBS in 4 months for follow up; will also check his HgbA1c in a few months for further evaluation (3) Vitamin D deficiency: Code(s): E55.9 - Vitamin D deficiency, unspecified Plan: He is advised that his Vitamin D level was low on his recent labs Will start him on Vitamin D3 2000 units QD - Rx sent (4) Elevated LFTs: Code(s): R79.89 - Other specified abnormal findings of blood chemistry Plan: Advised that his ALT was slightly elevated but AST was normal on his labs in [facility] 2023 Discussed that this is likely due to fatty liver (hepatosteatosis) and would have improved with his recent weight loss Will recheck his LFTs in 4 months for follow up (5) Bilateral knee pain: Code(s): M25.561 - Pain in right knee; M25.562 - Pain in left knee Qualifiers: Chronicity: unspecified Qualified Code(s): M25.561 - Pain in right knee; M25.562 - Pain in left knee Plan: X-rays of both knees done back in March 2023 came out grossly normal - joint spaces were reportedly well-preserved States that his knee pains have improved with regular knee strengthening exercises as well as with his weight loss He was seen by orthopedics in April 2023 for his knees and advised to continue with daily knee exercises and conservative measures with no surgical indication at present; can just see orthopedics on a PRN basis (6) Obesity (BMI 30-39.9): Code(s): E66.9 - Obesity, unspecified Plan: Reinforced diet/exercise as tolerated/lose weight - he has been able to lose over 15 pounds since his last visit Plan To return in 4 months for his next annual physical examination Orders: Orders Complete Blood Count Auto Diff 4 Months D64.9 - Anemia, unspecified UA CC w/rflx Micro + Cult 4 Months R30.0 - Dysuria Vitamin D 25-OH Total 4 Months E55.9 - Vitamin D deficiency, unspecified Hemoglobin A1c 4 Months R73.01 - Impaired fasting glucose Comprehensive [place]. Panel Fast 4 Months E78.00 - Pure hypercholesterolemia, unspecified Lipid Panel 4 Months E78.00 - Pure hypercholesterolemia, unspecified TSH reflex Free T4 4 Months E78.00 - Pure hypercholesterolemia, unspecified Medications: New cholecalciferol (vitamin D3) 50 mcg PO DAILY 90 days 90 caps 3RF E55.9 - Vitamin D deficiency, unspecified Coding Level of Care Code Est Pt Level 4 (25370) Diagnoses Mixed hyperlipidemia E78.2 Impaired fasting glucose R73.01 Vitamin D deficiency E55.9 Elevated LFTs R79.89 Pain in both knees, unspecified chronicity M25.561; M25.562 Chronicity: unspecified Obesity (BMI 30-39.9) E66.9
== END 2023-10-08 10:55 | disposition home or self-care (01) ==
PROVIDERS: PCP Internal Medicine; Visit Provider Internal Medicine
DX: E78.2 Mixed hyperlipidemia (principal); R73.01 Impaired fasting glucose; E55.9 Vitamin D deficiency, unspecified; R74.01 Elevation of levels of liver transaminase levels; M25.561 Pain in right knee; M25.562 Pain in left knee
CPT/HCPCS: 99214

== ENCOUNTER → 2024-01-09 14:15 | Outpatient (BNVA) | payer SELFPAY | PROVIDERS: PCP Internal Medicine; Visit Provider Physician Assistant | DX: Z02.79 Encounter for issue of other medical certificate (principal) ==

== ENCOUNTER 2024-02-10 10:12 | Outpatient (REF) | payer OTHER, SELFPAY ==
--- NOTE | ~2024-02-10 | XR_ITS ---
EXAMINATION: XR KNEE RIGHT 4 VIEWS CLINICAL INFORMATION: Pain in right knee M25.56. Patient states fall last week. COMPARISON: XR Right knee 04/10/2024 TECHNIQUE: Four views of the right knee. FINDINGS: No acute visible fracture or dislocation. Sclerosis along the medial posterior aspect of the of the right tibial metadiaphysis nonspecific though may reflect sequela of trauma versus bone islands. Joint space alignment otherwise maintained. Small to moderate knee joint effusion. Subcutaneous edema along the posterior knee compartment. XR/XR knee RT 4V IMPRESSION: 1. No acute visible fracture or dislocation. 2. Sclerosis along the medial posterior aspect of the right tibial metadiaphysis nonspecific though may reflect sequela of trauma versus bone islands. 3. Small to moderate knee joint effusion. 4. Subcutaneous edema along the posterior knee compartment. Electronically signed by: Huan Piedra MD 04/17/2024 02:59 PM EST
--- NOTE | ~2024-02-10 | XR_ITS ---
EXAMINATION: XR ANKLE LEFT 3 VIEWS CLINICAL INFORMATION: Pain in left ankle and joints of left foot M25.572. COMPARISON: XR Left ankle 10/16/2011 TECHNIQUE: AP, lateral, and oblique views of the left ankle. FINDINGS: No acute visible fracture or dislocation. The ankle mortise is symmetric. Joint space alignment otherwise maintained. Radiopaque curvilinear object noted along the medial midfoot measuring 4 mm. XR/XR ankle LT 2V IMPRESSION: 1. No acute visible fracture or dislocation. 2. Radiopaque curvilinear object noted along the medial midfoot measuring 4 mm. Electronically signed by: Huan Piedra MD 04/17/2024 03:02 PM [facility]
--- NOTE | ~2024-02-10 | XR_ITS ---
EXAMINATION: XR LUMBOSACRAL SPINE 3 VIEWS CLINICAL INFORMATION: Low back pain, unspecified M54.50. Patient states fall last week. COMPARISON: None. TECHNIQUE: Three views of the lumbosacral spine. FINDINGS: 5 nonrib-bearing lumbar-type vertebral bodies. No acute visible fracture or dislocation. Vertebral body has not displaced or maintained. Posterior elements are intact. Paraspinal soft tissues are unremarkable. Fecal loading of the ascending colon. Pelvic phleboliths are noted. Surgical clips right upper abdomen. XR/XR lumbar spine 2-3V IMPRESSION: 1. No acute visible fracture or dislocation. 2. Fecal loading of the ascending colon. Electronically signed by: Huan Piedra MD 04/17/2024 02:58 PM INEZ RP
[2024-02-10 11:34] LABS: MANUAL DIFF FLAG NO
[2024-02-10 12:28] LABS: Basophils Percent Auto 0.8 % (0-2); Eosinophils Absolute Auto 0.1 X10*3/uL (0.0-0.4); Eosinophils Percent Auto 1.9 % (0-4); Hematocrit 45.3 % (42.0-52.0); Hemoglobin 14.9 g/dl (14.0-18.0); Imm Gran Abs Auto 0.01 X10*3/uL (0.00-0.03); Imm Gran Pct Auto 0.2 % (0.0-0.4); Lymphocytes Percent Auto 37.8 % (20-40); Mean Corpuscular HGB Conc 32.9 g/dl (31.0-36.0); Mean Corpuscular Hemoglobin 27.4 pg (27.0-33.0); Mean Corpuscular Volume 83.4 fL (80.0-98.0); Mean Platelet Volume 10.9 fL (9.4-12.4); Monocytes Absolute Auto 0.4 X10*3/uL (0.1-1.2); Monocytes Percent Auto 7.8 % (2-11); Neutrophils Absolute Auto 2.7 x10*3/uL (2.0-8.3); Neutrophils Percent Auto 51.5 % (45-73); Platelet Count 218 X10*3/uL (160-400); Red Blood Count 5.43 X10*6/uL (4.60-5.80); White Blood Count 5.3 X10*3/uL (4.8-10.8)
[2024-02-10 12:43] LABS: Estimated Average Glucose 117 mg/dL; Hemoglobin A1C 144.8954 umol/L; Hemoglobin A1c % 5.7 % (<6.0); Total Hemoglobin (HGBA1C) 3704.3455 umol/L
[2024-02-10 12:43] LABS: Appearance Urine Clear; Color Urine Yellow; Glucose Urine UA Negative (Negative); Leukocyte Esterase Urine Negative (Negative); Nitrite Urine Negative (Negative); PH 5.5 (5.0-9.0); Specific Gravity - Urine 1.025 (1.005-1.025); Urine Blood Negative (Negative); Urine Ketones Negative (Negative); Urine Protein Negative (Neg-Trace)
[2024-02-10 13:10] LABS: Alanine Aminotransferase 57 U/L (0-40); Albumin Level 4.3 g/dL (3.5-5.0); Alkaline Phosphatase 72 U/L (39-117); Anion Gap 8 (12-20); Aspartate Amino Transferase 29 U/L (5-37); Bilirubin Total 0.6 mg/dL (0.0-1.0); Blood Urea Nitrogen 20 mg/dL (9-16); Calcium 9.6 mg/dL (8.4-10.2); Carbon Dioxide 26 mmol/L (22-29); Chloride 111 mmol/L (96-108); Cholesterol 212 mg/dL (<200); Estimated Glomerular Filt Rate > 60; Glucose Fasting 95 mg/dL (60-99); HDL Cholesterol 31 mg/dL (>40); LDL Cholesterol Calculated 157 mg/dL (<100); Sodium 141 mmol/L (135-145); Total Protein 7.9 g/dL (6.5-8.0); Triglycerides 123 mg/dL (<150)
[2024-02-10 13:29] LABS: TSH reflex Free T4 1.37 uIU/mL (0.32-4.0)
== END 2024-02-10 10:13 | disposition home or self-care (01) ==
LOC: HO.LAB 10:12
PROVIDERS: PCP Internal Medicine; Visit Provider Internal Medicine
DX: Z00.00 Encounter for general adult medical examination without abnormal findings (principal); E78.2 Mixed hyperlipidemia; R73.01 Impaired fasting glucose; E55.9 Vitamin D deficiency, unspecified; R79.89 Other specified abnormal findings of blood chemistry; M54.50 Low back pain, unspecified; M25.561 Pain in right knee; M25.572 Pain in left ankle and joints of left foot; E66.9 Obesity, unspecified; Z68.36 Body mass index [BMI] 36.0-36.9, adult; D64.9 Anemia, unspecified; E78.00 Pure hypercholesterolemia, unspecified; R30.0 Dysuria; Z79.899 Other long term (current) drug therapy; Z91.81 History of falling; Z28.21 Immunization not carried out because of patient refusal
CPT/HCPCS: 36415; 72100; 73564; 73600; 80053; 80061; 81003; 82306; 83036; 84443; 85025; 90471; 96127; 99395

== ENCOUNTER 2024-02-10 10:12 | Outpatient (AMB) | payer OTHER, SELFPAY ==
[2024-02-10 10:14] VITALS: BP 120/68; PULSE 77; O2SAT 96; BMI 36.6
--- NOTE | 2024-02-10 10:14 | MHC.PC.OV ---
Vital Signs 02/10/24 10:14 Height 5 ft 9 in Weight 248 lb 2 oz BMI 36.6 BP 120/68 Blood Pressure Location Lt brachial Position Sitting Pulse 77 Pulse Source Pulse Oximeter Pulse Oximetry (%) 96 Oxygen Delivery Method Room Air Intake Visit Reasons: Annual Exam Special Education Paraprofessional Required: No Accompanied by: Self / Same As Patient Allergies No Known Allergies [No Known Allergies*] Allergy (Verified 02/10/24 10:43) Medication List - Last Reconciled 02/10/24 by Puneet Michelle MD cholecalciferol (vitamin D3) 50 mcg PO DAILY 90 days ibuprofen 600 mg PO Q6H PRN Tobacco use date assessed: 02/10/24 Dental Screening Dental Screen Date: 02/10/24 Did you have a dental visit in the last 12 months?: Yes Did you have a dental problem in the last 6 months where you did not have access to dental care?: No Was dental information given to patient?: Patient has dentist HPI Annual Exam HPI Details Patient comes in today for his annual physical examination States that he was feeling okay until last Saturday, when he slipped and fell down the ladder that he was on Relates that he landed on his feet when he came down but must have sprained his right knee and twisted his left ankle in the process as he has been experiencing increased pain over the medial aspect of his right ankle and over his entire left knee Adds that he can barely put any weight on his right knee and left ankle so he had to call out of work - will need a note from the office today for this States that he has also been experiencing increased pain over his lower back since he fell last week He denies any headaches or dizziness Denies any chest pains, no SOB No nausea/vomiting, no abdominal pain No change in bowel habits noted He denies any acute urinary symptoms He was not able to get his previously ordered labs before his visit today [facility] Medical History Vitamin D deficiency Mixed hyperlipidemia Impaired fasting glucose Obesity (BMI 30-39.9) Cholecystitis without cholelithiasis Surgical History Hx laparoscopic cholecystectomy (~2017) Family History Father Diabetes mellitus Mother Anemia Social History Housing: House Patient Tobacco Use Status: Former Tobacco user Tobacco use type: Cigarette Years Smoked: 3 - quit in 2007 e-Cigarette/Vaping Use: Never Used service: No Current occupational status: employed Current occupation: Carpentry Cognitive needs: No Hearing needs: No Vision needs: No Questionnaire PHQ-9 Over the last 2 weeks, how often have you been bothered by any of the following problems? 1. Little interest or pleasure in doing things: nearly every day 2. Feeling down, depressed, or hopeless: not at all 3. Trouble falling or staying asleep, or sleeping too much: not at all 4. Feeling tired or having little energy: not at all 5. Poor appetite or overeating: not at all 6. Feeling bad about yourself - or that you are a failure or have let yourself or your family down: not at all 7. Trouble concentrating on things, such as reading the newspaper or watching television: not at all 8. Moving or speaking so slowly that other people could have noticed. Or the opposite - being so fidgety or restless that you have been moving around a lot more than usual: not at all 9. Thoughts that you would be better off or of hurting yourself in some way: not at all Total score: 3 Depression Screening Interpretation: Negative Depression Screening Done: Yes 34782 - PHQ-9 Billing: Yes Source: Developed by Drs. Regan Padilla, Jenny Blakely, Rosendo Amador and colleagues, with an educational teagan from [employer]. Thrive Questionnaire Date Thrive assessed: 02/10/24 I am a: Patient What is your living situation today?: I have a steady place to live Within the past 12 months, did the food you bought not last and you didn't have the money to get more?: Never true Within the past 12 months, did you worry whether your food would run out before you got money to buy more?: Never true Do you have trouble paying for medicines?: No Do you have trouble getting transportation to medical appointments?: No Do you have trouble paying your heating and electricity bill?: No Do you have trouble taking care of your child, family member or friend?: No Do you have trouble with day-to-day activities such as bathing, preparing meals, shopping, managing finances, etc.?: No Are you currently unemployed and looking for a job?: No Are you interested in more education?: No Please select the resources that you would like help with: Childcare Currently or been in a relationship where the following occur: No concerns reported THRIVE Score: 0 AUDIT C Alcohol Use Questionnaire (AUDIT-C) 1. How often do you have a drink containing alcohol?: Never 2. How many drinks containing alcohol do you have on a typical day when you are drinking?: 1 or 2 3. How often do you have six or more drinks on one occasion?: Never Total Score: 0 Score Reviewed/Action Taken: Yes IZZY-7 AMB Questionnaire IZZY-7 Date IZZY - 7 assessed: 02/10/24 Feeling nervous, anxious, or on edge: 0 = Not at all Not being able to stop or control worryin = Not at all Worrying too much about different things: 0 = Not at all Trouble relaxin = Not at all Being so restless that it is hard to sit still: 0 = Not at all Becoming easily annoyed or irritable: 0 = Not at all Feeling afraid as if something awful might happen: 0 = Not at all Total IZZY-7 score (0-4 normal; 5-9 mild; 10-14 moderate; 15-21 severe): 0 Source: Developed by Drs. Regan Padilla, Jenny Blakely, Rosendo Amador and colleagues, with an educational teagan from [employer]. Review of Systems Const Denies chills, Denies fatigue, Denies fever(s), Denies headache(s), Denies malaise and Denies weakness Eyes Denies blurry vision, Denies change in vision, Denies irritation and Denies itchy eyes ENT Denies dysphagia, Denies dizziness, Denies otalgia, Denies headache(s), Denies nasal congestion, Denies neck pain, Denies odynophagia and Denies sore throat Card Denies chest pain, Denies rapid heart rate, Denies irregular heart rhythm, Denies palpitations and Denies dyspnea Resp Denies chest congestion, Denies cough, Denies dyspnea and Denies wheezing GI Denies abdominal pain, Denies bloating, Denies constipation, Denies dysphagia, Denies heartburn, Reports diarrhea (usually after he eats something fried or greasy (S/P cholecystectomy)), Denies nausea, Denies odynophagia and Denies vomiting Denies hematuria, Denies difficulty urinating, Denies dysuria, Denies urinary frequency and Denies urinary urgency Musc Reports back pain (over the lower back - increased since last week when he fell), Reports arthralgias (over the medial aspect of the R knee and over the entire L ankle), Denies joint swelling, Denies muscle weakness and Denies neck pain Skin/Breast Denies change in pigmentation, Denies lesions, Denies rash and Denies unusual bruising Neuro Denies dizziness, Denies headache(s), Denies paresthesias and Denies weakness Endo Denies fatigue and Denies palpitations Aller/Immun Denies itchy eyes and Denies wheezing Physical exam (Primary Care) Vital Signs: Last Vital Signs Pulse 77 02/10/24 10:14 BP 120/68 02/10/24 10:14 Pulse Ox 96 02/10/24 10:14 Oxygen Delivery Method Room Air 02/10/24 10:14 BMI result Body Mass Index 36.6 Tobacco/Smoking Status: Tobacco use Status Tobacco use date assessed 02/10/24 02/10/24 10:17 Patient Tobacco Use Status Former Tobacco user 02/10/24 10:17 Tobacco use type Cigarette 02/10/24 10:17 e-Cigarette/Vaping Use Never Used 02/10/24 10:17 PHQ-9: PHQ-9 Score PHQ-9: Total score 3 02/10/24 10:22 Depression Screening Interpretation: Negative Thrive Assessment: Date of Thrive Assessment Date Thrive assessed 02/10/24 02/10/24 10:17 Currently or been in a relationship where the following occur: No concerns reported Const General: no acute distress, alert and awake Orientation/consciousness: patient oriented x3 HENMT Head: Yes normocephalic and Yes atraumatic Ears: external ears normal, TM's normal bilaterally and EAC's normal General nose exam: No nasal discharge present Face and sinus: Yes normal facial exam and Yes sinuses nontender Teeth and gingiva: dentition normal Throat: Yes posterior oropharynx normal and Yes tonsils normal (no TP congestion) Eyes Eyelids: Yes eyelids normal Conjunctivae: conjunctivae normal Pupils: Equal, round and reactive pupils present EOM: EOMs intact bilaterally Neck Neck: Yes no lymphadenopathy and Yes supple Thyroid: Thyroid normal Resp Auscultation: clear to auscultation bilaterally, no rales and no wheezes Cardio Rate: regular rate Rhythm: regular rhythm Heart sounds: no murmurs GI Palpation (GI): Soft to palpation, nontender and No hepatosplenomegaly present Auscultation: normal bowel sounds General: Yes no CVA tenderness Back/Spine/Pelvis Back: no CVA tenderness Thoracic/Lumbar Spine: straight leg raise negative bilaterally, paraspinal muscle tenderness bilaterally in the mid lumbar and in the lower lumbar and No lumbar spinal tenderness Skin Lesions: no lesions Rashes: no rashes Neuro General: patient oriented x3, moves all extremities, no focal motor deficits and CN's II-XI intact bilaterally Cranial nerves: Yes Equal, round and reactive pupils present Cognition (Neuro): normal cognition Gait exam (Neuro): Normal gait present Extrem General: Yes no clubbing, cyanosis or edema Right lower extremity: knee Details: tenderness Location: of the medial joint line; no swelling and no crepitus Left lower extremity: ankle Details: tenderness Location: anteromedially, anterolaterally and posteriorly; no swelling Office Procedures Flu Questionnaire Does the patient have a severe egg allergy?: No Immunizations Fluarix Triv [id number] (PF) 45 mcg (15 mcg x 3)/0.5 mL IM syringe Performing Provider: Puneet Michelle MD Per[facility] [place] [facility] Documented (not given) by: RUBÉN Thakkar on 02/10/24 10:25 Reason Not Given: Patient Refused Coding Level of Care Code Est Pt Prev Care 18-39y(13680) Diagnoses Annual physical exam Z00.00 Mixed hyperlipidemia E78.2 Impaired fasting glucose R73.01 Vitamin D deficiency E55.9 Elevated LFTs R79.89 Acute bilateral low back pain without sciatica M54.50 Chronicity: acute Back pain laterality: bilateral Sciatica presence: without sciatica Right knee pain, unspecified chronicity M25.561 Chronicity: unspecified Acute left ankle pain M25.572 Chronicity: acute Obesity (BMI 30-39.9) E66.9 Assessment & Plan Assessment & Plan (1) Annual physical exam: Code(s): Z00.00 - Encounter for general adult medical examination without abnormal findings Category: Medical Plan: Have advised patient to go and get his previously ordered labs done JUAN to complete his annual physical (2) Mixed hyperlipidemia: Code(s): E78.2 - Mixed hyperlipidemia Category: Medical Plan: Reinforced low cholesterol diet Will recheck his fasting lipids JUAN for follow up (3) Impaired fasting glucose: Code(s): R73.01 - Impaired fasting glucose Category: Medical Plan: His FBS was elevated at 116 mg/dl when it was checked back in April 2023 Reinforced low calorie/low carb diet Will have patient recheck his FBS as well as his HgbA1c now for follow up/further evaluation (4) Vitamin D deficiency: Code(s): E55.9 - Vitamin D deficiency, unspecified Category: Medical Plan: Continue Vitamin D3 2000 units QD (5) Elevated LFTs: Code(s): R79.89 - Other specified abnormal findings of blood chemistry Category: Medical Plan: His serum ALT was slightly elevated but AST was normal when these were last checked in April 2023 Have discussed with patient that this is likely due to fatty liver (hepatosteatosis) and should improve with weight loss Will recheck his LFTs JUAN for follow up (6) Low back pain: Code(s): M54.50 - Low back pain, unspecified Category: Medical Qualifiers: Chronicity: acute Back pain laterality: bilateral Sciatica presence: without sciatica Qualified Code(s): M54.50 - Low back pain, unspecified Plan: S/P fall from ladder last week (see HPI); is likely due to lumbar myofascial strain Will send him for lumbar spine x-rays for further evaluation Can consider referral to PT if his low back pain does not improve or subside over the next week or two (7) Right knee pain: Code(s): M25.561 - Pain in right knee Category: Medical Qualifiers: Chronicity: unspecified Qualified Code(s): M25.561 - Pain in right knee Plan: S/P fall from ladder last week (see HPI) Will send him for right knee x-rays for further evaluatio (8) Left ankle pain: Code(s): M25.572 - Pain in left ankle and joints of left foot Category: Medical Qualifiers: Chronicity: acute Qualified Code(s): M25.572 - Pain in left ankle and joints of left foot Plan: S/P fall from ladder last week (see HPI) Will send him for left ankle x-rays for further evaluation - is likely due to ankle sprain (9) Obesity (BMI 30-39.9): Code(s): E66.9 - Obesity, unspecified Category: Medical Plan: Reinforced diet/exercise as tolerated/lose weight - he has been able to lose again almost 10 pounds since his last visit Plan Follow up in 6 months Orders: Orders Influenza [id number] Immunization Today Z23 - Encounter for immunization XR ankle LT 2V Today M25.572 - Pain in left ankle and joints of left foot, Z91.81 - History of falling XR knee RT 4V Today M25.561 - Pain in right knee, Z91.81 - History of falling XR lumbar spine 2-3V Today M54.50 - Low back pain, unspecified, Z91.81 - History of falling
== END 2024-02-10 10:56 | disposition home or self-care (01) ==
PROVIDERS: PCP Internal Medicine; Visit Provider Internal Medicine
DX: Z00.00 Encounter for general adult medical examination without abnormal findings (principal); E78.2 Mixed hyperlipidemia; E66.812 Obesity, class 2; Z68.36 Body mass index [BMI] 36.0-36.9, adult; R73.01 Impaired fasting glucose; E55.9 Vitamin D deficiency, unspecified; R79.89 Other specified abnormal findings of blood chemistry; M54.50 Low back pain, unspecified; M25.561 Pain in right knee; M25.572 Pain in left ankle and joints of left foot

== ENCOUNTER 2024-12-03 15:45 | Outpatient (AMB) | payer OTHER, SELFPAY ==
[2024-12-03 15:48] VITALS: BP 116/80; PULSE 77; O2SAT 96; BMI 37.2
--- NOTE | 2024-12-03 15:48 | A.OFFPC_ITS ---
Vital Signs 12/03/24 15:48 Height 5 ft 9 in Weight 252 lb BMI 37.2 BP 116/80 Blood Pressure Location Lt brachial Position Sitting Pulse 77 Pulse Source Pulse Oximeter Pulse Oximetry (%) 96 Oxygen Delivery Method Room Air Intake Visit Reasons: 6Months Follow up Magistrate Assistant Required: No Accompanied by: Self / Same As Patient Allergies No Known Allergies (No Known Allergies*) Allergy (Verified 12/03/24 16:11) Medication List - Last Reconciled 12/03/24 by Puneet Michelle MD cholecalciferol (vitamin D3) 50 mcg PO DAILY 90 days ibuprofen 600 mg PO Q6H PRN Tobacco use date assessed: 12/03/24 Dental Screening Dental Screen Date: 12/03/24 Did you have a dental visit in the last 12 months?: Yes Did you have a dental problem in the last 6 months where you did not have access to dental care?: No Was dental information given to patient?: Patient has dentist HPI 6Months Follow up HPI Details Patient comes in today for his follow-up visit States that he feels okay He denies any headaches or dizziness Denies any chest pains, no shortness of breath No nausea/vomiting, no abdominal pain No change in bowel habits noted Needs his ibuprofen Rx refill He has no follow-up labs done recently but would like to know how his labs done back in January of 2024 came out [facility] Medical History Vitamin D deficiency Mixed hyperlipidemia Impaired fasting glucose Obesity (BMI 30-39.9) Cholecystitis without cholelithiasis Surgical History Hx laparoscopic cholecystectomy (~2016) Family History Father Diabetes mellitus Mother Anemia Social History Housing: House Patient Tobacco Use Status: Former Tobacco user Tobacco use type: Cigarette Years Smoked: 3 - quit in 2007 e-Cigarette/Vaping Use: Never Used service: No Current occupational status: employed Current occupation: Carpentry Cognitive needs: No Hearing needs: No Vision needs: No Questionnaire PHQ-9 Over the last 2 weeks, how often have you been bothered by any of the following problems? 1. Little interest or pleasure in doing things: not at all 2. Feeling down, depressed, or hopeless: not at all 3. Trouble falling or staying asleep, or sleeping too much: not at all 4. Feeling tired or having little energy: not at all 5. Poor appetite or overeating: not at all 6. Feeling bad about yourself - or that you are a failure or have let yourself or your family down: not at all 7. Trouble concentrating on things, such as reading the newspaper or watching television: not at all 8. Moving or speaking so slowly that other people could have noticed. Or the opposite - being so fidgety or restless that you have been moving around a lot more than usual: not at all 9. Thoughts that you would be better off or of hurting yourself in some way: not at all Total score: 0 Depression Screening Interpretation: Negative Depression Screening Done: Yes 02899 - PHQ-9 Billing: Yes Source: Developed by Drs. Regan Padilla, Jenny Blakely, Rosendo Amador and colleagues, with an educational teagan from [employer]. Thrive Questionnaire Date Thrive assessed: 12/03/24 I am a: Patient What is your living situation today?: I have a steady place to live Within the past 12 months, did the food you bought not last and you didn't have the money to get more?: Never true Within the past 12 months, did you worry whether your food would run out before you got money to buy more?: Never true Do you have trouble paying for medicines?: No Do you have trouble getting transportation to medical appointments?: No Do you have trouble paying your heating and electricity bill?: Yes Do you have trouble taking care of your child, family member or friend?: No Do you have trouble with day-to-day activities such as bathing, preparing meals, shopping, managing finances, etc.?: No Are you currently unemployed and looking for a job?: Yes Are you interested in more education?: No Please select the resources that you would like help with: None Currently or been in a relationship where the following occur: No concerns reported THRIVE Score: 1 AUDIT C Alcohol Use Questionnaire (AUDIT-C) 1. How often do you have a drink containing alcohol?: Never 3. How often do you have six or more drinks on one occasion?: Never Total Score: 0 Score Reviewed/Action Taken: Yes IZZY-7 AMB Questionnaire IZZY-7 Date IZZY - 7 assessed: 12/03/24 Feeling nervous, anxious, or on edge: 0 = Not at all Not being able to stop or control worryin = Not at all Worrying too much about different things: 0 = Not at all Trouble relaxin = Not at all Being so restless that it is hard to sit still: 0 = Not at all Becoming easily annoyed or irritable: 2 = More than half the days Feeling afraid as if something awful might happen: 0 = Not at all Total IZZY-7 score (0-4 normal; 5-9 mild; 10-14 moderate; 15-21 severe): 2 Source: Developed by Drs. Regan Padilla, Jenny Blakely, Rosendo Amador and colleagues, with an educational teagan from [employer]. Review of Systems Const Denies chills, Denies fatigue, Denies fever(s) and Denies headache(s) ENT Denies dysphagia, Denies dizziness, Denies otalgia, Denies headache(s), Denies neck pain, Denies odynophagia and Denies sore throat Card Denies chest pain, Denies rapid heart rate, Denies palpitations and Denies dyspnea Resp Denies chest congestion, Denies cough and Denies dyspnea GI Denies abdominal pain, Denies constipation, Denies dysphagia, Denies heartburn, Reports diarrhea (usually after he eats something fried or greasy (S/P cholecystectomy)), Denies nausea, Denies odynophagia and Denies vomiting Denies difficulty urinating, Denies dysuria, Denies nocturia and Denies urinary frequency Musc Denies back pain, Reports arthralgias (left foot) and Denies neck pain Skin/Breast Denies rash and Denies unusual bruising Neuro Denies dizziness, Denies headache(s) and Denies paresthesias Endo Denies fatigue and Denies palpitations Physical exam (Primary Care) Vital Signs: Last Vital Signs Pulse 77 12/03/24 15:48 BP 116/80 12/03/24 15:48 Pulse Ox 96 12/03/24 15:48 Oxygen Delivery Method Room Air 12/03/24 15:48 BMI result Body Mass Index 37.2 Tobacco/Smoking Status: Tobacco use Status Tobacco use date assessed 12/03/24 12/03/24 15:55 Patient Tobacco Use Status Former Tobacco user 12/03/24 15:55 Tobacco use type Cigarette 12/03/24 15:55 e-Cigarette/Vaping Use Never Used 12/03/24 15:55 PHQ-9: PHQ-9 Score PHQ-9: Total score 0 12/03/24 16:17 Depression Screening Interpretation: Negative Thrive Assessment: Date of Thrive Assessment Date Thrive assessed 12/03/24 12/03/24 15:55 Currently or been in a relationship where the following occur: No concerns reported Const General: no acute distress and alert HENMT Ears: TM's normal bilaterally and EAC's normal Throat: Yes posterior oropharynx normal and Yes tonsils normal (no TP congestion) Neck Neck: Yes supple and No lymphadenopathy Thyroid: Thyroid normal Resp Auscultation: clear to auscultation bilaterally, no rales and no wheezes Cardio Rate: regular rate Rhythm: regular rhythm Heart sounds: no murmurs GI Palpation (GI): Soft to palpation and nontender Auscultation: normal bowel sounds General: Yes no CVA tenderness Back/Spine/Pelvis Back: no CVA tenderness Thoracic/Lumbar Spine: No lumbar spinal tenderness Skin Rashes: no rashes Extrem General: Yes no clubbing, cyanosis or edema Left lower extremity: foot Details: tenderness (mild) Location: of the medial foot Location: in the mid-section and no edema Results Reviewed Results Reviewed: Laboratory Tests 02/10/24 02/10/24 11:17 11:30 WBC 5.3 Hgb 14.9 Hct 45.3 Plt Count 218 Sodium 141 Potassium 4.0 Creatinine 1.20 Estimated GFR > 60 Fasting Glucose 95 Hemoglobin A1c % 5.7 Calcium 9.6 AST 29 ALT 57 H Triglycerides 123 Cholesterol 212 H LDL Cholesterol, Calc 157 H HDL Cholesterol 31 L 25-OH Vitamin D Total 23.0 L TSH 1.37 Ur Specific [place] 1.025 Urine Protein Negative Urine Glucose (UA) Negative Urine Blood Negative Urine Nitrite Negative Ur Leukocyte Esterase Negative Coding Level of Care Code Est Pt Level 4 (15884) Diagnoses Mixed hyperlipidemia E78.2 Impaired fasting glucose R73.01 Vitamin D deficiency E55.9 Left foot pain M79.672 Obesity (BMI 30-39.9) E66.9 Additional Codes PHQ-9 - 37980 - PHQ-9 Billing: Yes ([id number]) Assessment & Plan Assessment & Plan (1) Mixed hyperlipidemia: Code(s): E78.2 - Mixed hyperlipidemia Category: Medical Plan: Results of his labs done back in January 2024 reviewed and discussed with patient - he is advised that his cholesterol levels, particularly his total and LDL cholesterol, have increased further from his previous numbers earlier last year Reinforced low cholesterol diet Will have him recheck his labs and fasting lipids in a couple of months for follow up (2) Impaired fasting glucose: Code(s): R73.01 - Impaired fasting glucose Category: Medical Plan: His FBS was normal at 95 mg/dl and HgbA1c was normal at 5.7% on his labs back in January 2024 Reinforced low calorie/low carb diet Will recheck his FBS in a couple of months for follow up (3) Vitamin D deficiency: Code(s): E55.9 - Vitamin D deficiency, unspecified Category: Medical Plan: Continue Vitamin D3 2000 units QD (4) Left foot pain: Code(s): M79.672 - Pain in left foot Category: Medical Plan: X-rays of the left ankle done back in January 2024 revealed (+) radiopaque curvilinear object noted along the medial midfoot measuring 4 mm If his left foot pain persists, may need to refer him to surgery for further evaluation/exploration of this (5) Obesity (BMI 30-39.9): Code(s): E66.9 - Obesity, unspecified Category: Medical Plan: Reinforced diet/exercise as tolerated/lose weight Plan To return as scheduled in January 2025 for his annual physical examination Orders: Orders Complete Blood Count Auto Diff 02/03/25 D64.9 - Anemia, unspecified, Z00.00 - Encounter for general adult medical examination without abnormal findings Comprehensive [place]. Panel Fast 02/03/25 E78.00 - Pure hypercholesterolemia, unspecified, Z00.00 - Encounter for general adult medical examination without abnormal findings Lipid Panel 02/03/25 E78.00 - Pure hypercholesterolemia, unspecified, Z00.00 - Encounter for general adult medical examination without abnormal findings UA CC w/rflx Micro + Cult 02/03/25 R30.0 - Dysuria, Z00.00 - Encounter for general adult medical examination without abnormal findings TSH reflex Free T4 02/03/25 E78.00 - Pure hypercholesterolemia, unspecified, Z00.00 - Encounter for general adult medical examination without abnormal findings Vitamin D 25-OH Total 02/03/25 E55.9 - Vitamin D deficiency, unspecified, Z00.00 - Encounter for general adult medical examination without abnormal findings Medications: Refilled ibuprofen 600 mg PO Q6H PRN 20 tabs 0RF pain cholecalciferol (vitamin D3) 50 mcg PO DAILY 90 caps 3RF 90 days E55.9 - Vitamin D deficiency, unspecified
--- OUTSIDE RECORDS SUMMARY | 2024-12-03 16:01 | XMS_ITS | Clinical Summary ---
Author Organization [employer] Address [address] [place] [address] [address] [place] [address] Care Team Providers Care Doctor Podiatric Medicine Name Role Phone Unavailable Primary Care Provider Unavailabl e Social History Tobacco Use Types Packs/Day Years Used Date Smoking Tobacco: Never Assessed Sex and Gender Information Value Date Recorded Sex Assigned at Male 02/19/2022 10:15 AM EDT Legal Sex Male 10:15 AM EDT Gender Identity Male 02/19/2022 10:15 AM EDT Sexual Orientation Don't know 02/19/2022 10 :15 AM EDT Plan of Treatment Health Maintenance Due Date Last Done Comments Depression Screening 1987 Lipid Panel 1987 Disability Screening 1987 Alcohol/Substance Use Screening 1999 Tobacco Screening 1999 Family Planning (PISQ) 07/13/2002 HPV Vaccines (1 - Male 3-dos e series) 07/13/2002 Hepatitis B Vaccines (1 of 3 - 19+ 3-dose series) 07/13/2006 COVID-19 Vaccine (3 - 2023-2 5 season) 2023 11/27/2020, 11/06/2020 Influenza Vaccine (#1) 2024 DTaP/Tdap/Td Vaccines (2 - T d or Tdap) 11/24/2028 11/24/2018 Zoster Vaccines (1 of 2) 07/13/2037 RSV Patients and Patients Aged 60 years or older (1 - 1-dose 75+ series) 07/13/2062 HIB Vaccines Aged Out No longer eligi ble based on patient's age to complete this topic Hepatitis A Vaccines Aged Out No long er eligible based on patient's age to complete this topic IPV Vaccines Aged Out No longer eligi ble based on patient's age to complete this topic Meningococcal B Vaccine Aged Out No l onger eligible based on patient's age to complete this topic Meningococcal Vaccine Aged Out No harriet denny eligible based on patient's age to complete this topic Pneumococcal Vaccine: Pediatrics (0 to 5 Years) and At-Risk Patients (6 to 49) Years Aged Out No longer eligible b ased on patient's age to complete this topic RSV under 20 months Aged Out No longe r eligible based on patient's age to complete this topic Rotavirus Vaccines Aged Out No longer eligible based on patient's age to complete this topic
== END 2024-12-03 16:20 | disposition home or self-care (01) ==
LOC: HO.HMCH 15:46
PROVIDERS: PCP Internal Medicine; Visit Provider Internal Medicine
DX: E78.2 Mixed hyperlipidemia (principal); E66.9 Obesity, unspecified; Z68.37 Body mass index [BMI] 37.0-37.9, adult; R73.01 Impaired fasting glucose; E55.9 Vitamin D deficiency, unspecified; M79.672 Pain in left foot

== ENCOUNTER → 2024-12-03 15:45 | Outpatient (BNVA) | payer OTHER, SELFPAY | PROVIDERS: PCP Internal Medicine; Visit Provider Internal Medicine | DX: E78.2 Mixed hyperlipidemia (principal); R73.01 Impaired fasting glucose; E55.9 Vitamin D deficiency, unspecified; M79.672 Pain in left foot; E66.9 Obesity, unspecified; Z68.37 Body mass index [BMI] 37.0-37.9, adult | CPT/HCPCS: 96127; 99212 ==

== ENCOUNTER 2024-12-18 11:00 | Emergency (ER) | payer OTHER, SELFPAY ==
--- NOTE | ~2024-12-18 | XR_ITS ---
EXAMINATION: XR CHEST CLINICAL INFORMATION: cough COMPARISON: None available. TECHNIQUE: 2 views of the chest were obtained. FINDINGS: The cardiac, hilar, and mediastinal contours are normal. The lungs are clear bilaterally. There is no pneumothorax or pleural effusion. There is no focal osseous or soft tissue abnormality. There are cholecystectomy clips noted. XR/XR chest 2V IMPRESSION: No active pulmonary disease. Electronically signed by: Valente Maya MD 12/18/2024 12:14 PM EDT
[2024-12-18 11:04] VITALS: BP 139/63; PULSE 70; RESP 16; TEMP 36.6; O2SAT 95; BMI 37.4
--- NOTE | 2024-12-18 11:05 | ED_ITS ---
HPI - General Adult General Chief complaint: Upper Respiratory Symptoms Stated complaint: Sob Time Seen by Provider: 12/18/24 11:16 Source: patient Mode of arrival: ambulatory Limitations: no limitations History of Present Illness ED Provider: HPI narrative: 39-year-old male with respiratory complaints such as shortness of breath, congestion, slight dizziness, sore throat, reports that the cough is productive, nonsmoker nondrinker no drug use, daughter has same. Related Data Previous Rx's ?Medication ?Instructions ?Recorded cholecalciferol (vitamin D3) 50 50 mcg PO DAILY 90 day s #90 caps 12/03/24 mcg (2,000 unit) capsule ibuprofen 600 mg tablet 600 mg PO Q6H PRN pain #20 t abs 12/03/24 benzonatate 100 mg capsule 100 mg PO TID PRN cough #20 caps 12/18/24 dexamethasone 4 mg tablet 4 mg PO DAILY #3 tabs Allergies Allergy/AdvReac Type Severity Reaction Status Date / Time No Known Allergies (No Known Allergy Verified 12/18/24 11:07 Allergies*) Review of Systems 2 Constitutional: Constitutional: Reports as per [facility] Past Medical History Medical History Vitamin D deficiency Mixed hyperlipidemia Impaired fasting glucose Obesity (BMI 30-39.9) Cholecystitis without cholelithiasis Surgical History Hx laparoscopic cholecystectomy (~2017) Family History Family History Father Diabetes mellitus Mother Anemia Social History Social History Housing: House Patient Tobacco Use Status: Former Tobacco user Tobacco use type: Cigarette Years Smoked: 3 - quit in 2007 Smoked in Last 30 Days: No e-Cigarette/Vaping Use: Never Used Use of substances other than those prescribed or required for medical reasons: No Advance Directives: No Advance Directives Information Provided: Yes service: No Current occupational status: employed Current occupation: Carpentry Cognitive needs: No Hearing needs: No Vision needs: No Physical Exam ED Vital Signs: Vital Signs - 24 hr 12/18/24 11:04 12/18/24 11:44 12/18/24 11:44 Temperature 97.8 F 97.8 F Pulse Rate 70 70 Respiratory Rate 16 16 Blood Pressure 139/63 139/63 Pulse Oximetry 95 95 95 Oxygen Delivery Method Room Air Room Air Room Air BMI result Body Mass Index 37.4 Const Other: * Gen: ?Overall well-appearing patient * HEENT: PERRLA, EOMI, MMM, * Neck: Supple, no LAD * CV: RRR, no obvious murmurs appreciated * Resp: ?No wheezing rales rhonchi no stridor moving air well * Abd: ?Bowel sounds are present, no tenderness no rebound no rigidity * MSK: FROM, strength 5/5 all extremities * Skin: Warm, dry, intact, * Neuro: ?Alert and oriented x3, moving upper and lower extremities symmetrically, no obvious facial asymmetry noted Course Course Course Narrative: RME, this is a rapid medical exam performed by Deniz Balbuena please refer to primary provider for complete H&P- 39-year-old male presents for evaluation of cough, shortness of breath, sore throat. Symptoms started 2 days ago. He reports feeling quite dizzy yesterday but not today. Plan for labs, chest x-ray and viral swabs. Medical Decision Making Medical Decision Making MDM Narrative: Considerations for workup as below, also some other nonspecific complaints we will make sure this is not this cardiac dysrhythmia or ACS, no hypoxia tachycardia to suspect PE, PERC negative, ENT exam without any deep space infection such as peritonsillar abscess and there was no suspicion for epiglottitis Differential Diagnosis Differential Diagnoses: The differential diagnosis associated with the presentation includes (Viral Respiratory infection, COPD exacerbation, pneumonia, pneumothorax, ACS, PE,) Admission/Observation Consideration of admission/observation: Escalation of care including admission/observation considered 2022 Emergency Medicine Coding Guide from [email or web address] on 12/18/2024 All calculations should be rechecked by clinician prior to use RESULT SUMMARY: 4 Estimated Level of Service Problems: Moderate (4) Risk: Moderate (4) Data: Extensive (5) NARRATIVE MDM: This patient's problem complexity is Moderate as patient: has an acute illness with systemic symptoms. This patient's risk is Moderate due to: overall presentation requiring evaluation for a potentially Moderate-risk process. This patient's data complexity is Extensive due to: -multiple tests ordered/reviewed -independent interpretation of imaging or EKG INPUTS: Number and Complexity ?> 6 = 4: acute illness w/systemic sx (f) Risk level ?> 3 = Moderate Tests ordered ?> 3 = =3 Tests results reviewed (excluding labs) ?> 2 = 2 Prior external notes reviewed ?> 0 = 0 Assessment requiring and independent historian ?> 0 = No Independent interpretation of tests ?> 1 = Yes Discussed management/test interpretation w/external professional ?> 0 = No Lab Data MDM Lab Attestation statement: I reviewed the patient's lab results. 12/18/24 11:47 12/18/24 11:47 Labs: Lab Results 12/18/24 Range/Units 11:47 WBC 7.0 (4.8-10.8) X10*3/uL RBC 5.34 (4.60-5.80) X10*6/uL Hgb 14.7 (14.0-18.0) g/dl Hct 44.0 (42.0-52.0) % MCV 82.4 (80.0-98.0) fL MCH 27.5 (27.0-33.0) pg MCHC 33.4 (31.0-36.0) g/dl RDW 13.1 (11.0-16.0) % Plt Count 208 (160-400) X10*3/uL MPV 10.5 (9.4-12.4) fL Immature Gran % (Auto) 0.3 (0.0-0.4) % Neut % (Auto) 58.9 (45-73) % Lymph % (Auto) 30.0 (20-40) % [place] % (Auto) 5.7 (2-11) % Eos % (Auto) 4.4 H (0-4) % Baso % (Auto) 0.7 (0-2) % Lymph # (Auto) 2.1 (1.2-4.9) X10*3/uL [place] # (Auto) 0.4 (0.1-1.2) X10*3/uL Eos # (Auto) 0.3 (0.0-0.4) X10*3/uL Baso # (Auto) 0.1 (0.0-0.2) X10*3/uL Abs Immat Gran (auto) 0.02 (0.00-0.03) X10*3/uL Absolute Neuts (auto) 4.1 (2.0-8.3) x10*3/uL Absolute Nucleated RBC 0.000 (0.0-0.012) X10*3/uL Nucleated RBC % (auto) 0.0 (0.0-0.2) /100WBC Sodium 140 (135-145) mmol/L Potassium 4.0 (3.3-5.1) mmol/L Chloride 110 H (96-108) mmol/L Carbon Dioxide 22 (22-29) mmol/L Anion Gap 12 (12-20) BUN 20 H (9-16) mg/dL Creatinine 1.23 (0.5-1.4) mg/dL Estim Creat Clear Calc 102.7 Estimated GFR > 60 Random Glucose 96 (60-115) mg/dL Calcium 9.2 (8.4-10.2) mg/dL Total Bilirubin 0.9 (0.0-1.0) mg/dL AST 39 H (5-37) U/L ALT 63 H (0-40) U/L Alkaline Phosphatase 83 (39-117) U/L Total Protein 7.7 (6.5-8.0) g/dL Albumin 4.4 (3.5-5.0) g/dL COVID-19 (JU) Negative (Negative) COVID-19 Clin Com See Note Influenza Type A (YANIRA) Negative (Negative) Influenza Type B (YANIRA) Negative (Negative) Influenza A & B Note See Note S. pyogenes GrpA YANIRA Negative (Negative) Independent Interpretation I performed an independent interpretation of an: EKG (70 beats per minute otherwise normal ECG without dysrhythmia, AV ajay blocks or ST-T changes to suspect underlying ACS, my independent interpretation) and Plain X-Ray (My independent chest xray interpretation: Lungs: Lungs are clear bilaterally without evidence of focal consolidation, pleural effusion, or pneumothorax. Cardiac silhouette is unremarkable, no obvious mediastinal widening, no obvious bony abnormalities such as fractures. Impression: Normal chest X-r) Radiology Impression Discussion of test interpretation with radiology: I have reviewed the radiologist's reading. ( XR/XR chest 2V IMPRESSION: No active pulmonary disease.) Prescription Management I considered prescription management with: Antibiotic Discharge Plan Discharge Clinical Impression: Dizziness, Productive cough Patient Disposition: Home, Self-Care Additional Instructions: Your workup today was fairly extensive chest x-ray, EKG, viral swab, throat swab blood work has been all reassuring, I am providing him with some medications that can use an outpatient basis for cough. Worsening symptoms concerns come back to the ER Prescriptions: New benzonatate 100 mg capsule 100 mg PO TID PRN (Reason: cough) Qty: 20 0RF dexamethasone 4 mg tablet 4 mg PO DAILY Qty: 3 0RF Rx Instructions: Day 1: 2 pill Day 2 :1 pill No Action ibuprofen 600 mg tablet 600 mg PO Q6H PRN (Reason: pain) Qty: 20 0RF cholecalciferol (vitamin D3) 50 mcg (2,000 unit) capsule 50 mcg PO DAILY 90 Days Qty: 90 3RF Stand Alone Forms: Work/School Release Print Language: Malagasy
--- NOTE | 2024-12-18 11:05 | ECG_ITS ---
Test Reason : SOB Blood Pressure : */* mmHG Vent. Rate : 70 BPM Atrial Rate : 70 BPM P-R Int : 162 ms QRS Dur : 82 ms QT Int : 378 ms P-R-T Axes : 29 47 75 degrees QTcB Int : 408 ms Normal sinus rhythm Normal ECG No previous ECGs available Referred By: Israel Balbuena Electronically Signed By: CLIFTON YIP
[2024-12-18 11:44] VITALS: BP 139/63; PULSE 70; RESP 16; TEMP 36.6; O2SAT 95
--- NOTE | 2024-12-18 11:47 | PC.NURSE ---
39 M presents to ED with SOB, sore throat 7/10 pain, and runny nose x 3 days, sts worse today. RR even and unlabored, breath sounds clear bilat. Pt denies any CP or other complaints. A+OX4, ambulatory. No other complaints.
[2024-12-18 11:52] LABS: MANUAL DIFF FLAG NO
[2024-12-18 11:54] LABS: Hematocrit 44.0 % (42.0-52.0); Hemoglobin 14.7 g/dl (14.0-18.0); Imm Gran Abs Auto 0.02 X10*3/uL (0.00-0.03); Imm Gran Pct Auto 0.3 % (0.0-0.4); Lymphocytes Absolute Auto 2.1 X10*3/uL (1.2-4.9); Mean Corpuscular HGB Conc 33.4 g/dl (31.0-36.0); Mean Corpuscular Hemoglobin 27.5 pg (27.0-33.0); Mean Corpuscular Volume 82.4 fL (80.0-98.0); NRBC Abs Auto 0.000 X10*3/uL (0.0-0.012); NRBC Pct Auto 0.0 /100WBC (0.0-0.2); Platelet Count 208 X10*3/uL (160-400); Red Blood Count 5.34 X10*6/uL (4.60-5.80); White Blood Count 7.0 X10*3/uL (4.8-10.8)
[2024-12-18 12:06] LABS: Alanine Aminotransferase 63 U/L (0-40); Albumin Level 4.4 g/dL (3.5-5.0); Alkaline Phosphatase 83 U/L (39-117); Anion Gap 12 (12-20); Aspartate Amino Transferase 39 U/L (5-37); Blood Urea Nitrogen 20 mg/dL (9-16); Calcium 9.2 mg/dL (8.4-10.2); Carbon Dioxide 22 mmol/L (22-29); Chloride 110 mmol/L (96-108); Creatinine Clr Calc Pharmacy 102.7; Estimated Glomerular Filt Rate > 60; Potassium 4.0 mmol/L (3.3-5.1); Sodium 140 mmol/L (135-145); Total Protein 7.7 g/dL (6.5-8.0)
[2024-12-18 12:07] LABS: IDNOW Serial# 6674DD1D; Strep A Nucleic Acid Negative (Negative)
[2024-12-18 12:14] LABS: COVID-19 Test Negative (Negative); IDNOW Serial# 152EDE1D
[2024-12-18 12:18] LABS: IDNOW Serial# 08D9AD1C; Influenza B2 Negative (Negative)
[2024-12-18 12:51] VITALS: BP 139/63; PULSE 70; RESP 16; TEMP 36.6; O2SAT 95
== END 2024-12-18 12:52 | disposition home or self-care (01) ==
PROVIDERS: Physician Assistant; Emergency Provider Emergency Medicine; PCP Internal Medicine
DX: R06.02 Shortness of breath (principal); R05.8 Other specified cough; R42 Dizziness and giddiness
CPT/HCPCS: 71046; 80053; 85025; 87502; 87635; 87651; 93005; 99283; 99285

== ENCOUNTER → 2024-12-18 11:05 | Outpatient (BNV) | payer OTHER, SELFPAY | PROVIDERS: Emergency Provider Emergency Medicine; PCP Internal Medicine; Visit Provider Internal Medicine | DX: R06.02 Shortness of breath (principal) | CPT/HCPCS: 93010 ==

== ENCOUNTER → 2024-12-18 11:05 | Outpatient (BNV) | payer OTHER, SELFPAY | PROVIDERS: Emergency Provider Emergency Medicine; PCP Internal Medicine; Visit Provider Radiology Diagnostic Radiology | DX: R05.9 Cough, unspecified (principal) | CPT/HCPCS: 71046 ==

== ENCOUNTER 2025-02-08 08:50 | Outpatient (REF) | payer OTHER, SELFPAY ==
[2025-02-08 09:09] LABS: MANUAL DIFF FLAG NO
[2025-02-08 09:43] LABS: Hematocrit 45.3 % (42.0-52.0); Hemoglobin 14.9 g/dl (14.0-18.0); Imm Gran Abs Auto 0.02 X10*3/uL (0.00-0.03); Imm Gran Pct Auto 0.4 % (0.0-0.4); Lymphocytes Absolute Auto 2.3 X10*3/uL (1.2-4.9); Mean Corpuscular HGB Conc 32.9 g/dl (31.0-36.0); Mean Corpuscular Hemoglobin 27.4 pg (27.0-33.0); Mean Corpuscular Volume 83.4 fL (80.0-98.0); NRBC Abs Auto 0.000 X10*3/uL (0.0-0.012); NRBC Pct Auto 0.0 /100WBC (0.0-0.2); Platelet Count 217 X10*3/uL (160-400); Red Blood Count 5.43 X10*6/uL (4.60-5.80); White Blood Count 5.6 X10*3/uL (4.8-10.8)
[2025-02-08 09:51] LABS: Appearance Urine Clear; Glucose Urine UA Negative (Negative); PH 5.5 (5.0-9.0); Specific Gravity - Urine >= 1.030 (1.005-1.025)
--- OUTSIDE RECORDS SUMMARY | 2025-02-08 09:57 | XMS_ITS | Encounter Summary ---
Author Organization [employer] Address [address] [place] [address] [address] [place] [address] Care Team Providers Care Coil Machine Operator Name Role Phone Unavailable Primary Care Provider Unavailabl e Encounter Details Date Type Department Care Team (Latest Contact Info) Description 04/11/2020 Abstract [facility] CONVERSIONS Dental, Provider, DDS Social History Tobacco Use Types Packs/Day Years Used Date Smoking Tobacco: Never Assessed Sex and Gender Information Value Date Recorded Sex Assigned at Male 02/19/2022 10:15 AM EDT Legal Sex Male 10:15 AM EDT Gender Identity Male 02/19/2022 10:15 AM EDT Sexual Orientation Don't know 02/19/2022 10 :15 AM EDT documented as of this encounter Plan of Treatment Not on file documented as of this encounter Visit Diagnoses Not on filedocumented in this encounter
--- OUTSIDE RECORDS SUMMARY | 2025-02-08 09:57 | XMS_ITS | Clinical Summary ---
Author Organization [email or web address] Address [address] [place] [address] [address] [place] [address] Care Team Providers Care Global President Name Role Phone Unavailable Primary Care Provider [...] Date Last Done Comments Depression Screening 1987 HIV Screening 1987 Lipid Panel 1987 SDOH Screening 1987 Disability Screening 1987 Alcohol/Substance Use Screening 1999 Tobacco Screening 1999 Family Planning (PISQ) 07/13/2002 HPV Vaccines (1 - Male 3-dos e series) 07/13/2002 Hepatitis C Screening 07/13/2005 Hepatitis B Vaccines (1 of 3 - 19+ 3-dose series) 07/13/2006 COVID-19 Vaccine (3 - 2024-2 6 season) 2024 11/27/2020, 11/06/2020 Influenza Vaccine (#1) 2024 DTaP/Tdap/Td [...]
[2025-02-08 10:27] LABS: Alanine Aminotransferase 54 U/L (0-40); Albumin Level 4.3 g/dL (3.5-5.0); Alkaline Phosphatase 76 U/L (39-117); Anion Gap 12 (12-20); Aspartate Amino Transferase 26 U/L (5-37); Blood Urea Nitrogen 15 mg/dL (9-16); Calcium 8.7 mg/dL (8.4-10.2); Carbon Dioxide 23 mmol/L (22-29); Chloride 110 mmol/L (96-108); Cholesterol 201 mg/dL (<200); Estimated Glomerular Filt Rate > 60; HDL Cholesterol 30 mg/dL (>40); Potassium 4.0 mmol/L (3.3-5.1); Sodium 141 mmol/L (135-145); Total Protein 7.5 g/dL (6.5-8.0); Triglycerides 144 mg/dL (<150)
== END 2025-02-08 08:51 | disposition home or self-care (01) ==
LOC: HO.LAB 08:50
PROVIDERS: PCP Internal Medicine; Visit Provider Internal Medicine
DX: Z00.00 Encounter for general adult medical examination without abnormal findings (principal); E55.9 Vitamin D deficiency, unspecified; D64.9 Anemia, unspecified; E78.00 Pure hypercholesterolemia, unspecified; R30.0 Dysuria
CPT/HCPCS: 36415; 80053; 80061; 81003; 82306; 84443; 85025

== ENCOUNTER 2025-02-10 10:32 | Outpatient (AMB) | payer OTHER, SELFPAY ==
[2025-02-10 10:35] VITALS: BP 132/68; PULSE 80; RESP 18; TEMP 36.2; O2SAT 96; BMI 38.0
--- NOTE | 2025-02-10 10:35 | MHC.PC.OV ---
Vital Signs 02/10/25 10:35 02/10/25 10:35 Height 5 ft 9 in 5 ft 9 in Weight 257 lb 6 oz BMI 38.0 BP 132/68 Blood Pressure Location Lt brachial Lt brachial Position Sitting Sitting Respiration 18 Pulse 80 Pulse Source Pulse Oximeter Pulse Oximeter Temp 97.1 F Temp Source Temporal Artery Scan Pulse Oximetry (%) 96 Oxygen Delivery Method Room Air Room Air Intake Visit Reasons: Annual exam Chainstitch Seat Joiner Required: No Accompanied by: Self / Same As Patient Allergies No Known Allergies (No Known Allergies*) Allergy (Verified 02/10/25 11:07) Medication List - Last Reconciled 02/10/25 by Puneet Michelle MD cholecalciferol (vitamin D3) 50 mcg PO DAILY 90 days ibuprofen 600 mg PO Q6H PRN Tobacco use date assessed: 02/10/25 Dental Screening Dental Screen Date: 02/10/25 Did you have a dental visit in the last 12 months?: No Did you have a dental problem in the last 6 months where you did not have access to dental care?: No Was dental information given to patient?: No HPI Annual exam HPI Details Patient comes in today for his annual physical examination States that he feels okay and that he has been working out at the gym regularly for the past couple of months now Feels that he has gained some muscles recently from working out and thinks that this is the main reason why it looks like he has gained some weight since his last visit States that he has been watching his diet very well and has been eating a lot healthieer lately Notes that his previous low back pain and right knee pain have improved a lot recently but he continues to be bothered bh his left ankle and left foot pain (chronic issue) He denies any headaches or dizziness Denies any chest pains, no increased SOB No nausea/vomiting, no abdominal pain No change in bowel habits noted He denies any acute urinary symptoms He had his follow up labs done a couple of days ago - to discuss his results [facility] Medical History Vitamin D deficiency Mixed hyperlipidemia Impaired fasting glucose Obesity (BMI 30-39.9) Cholecystitis without cholelithiasis Surgical History Hx laparoscopic cholecystectomy (~2017) Family History Father Diabetes mellitus Mother Anemia Social History Housing: House Patient Tobacco Use Status: Former Tobacco user Tobacco use type: Cigarette Years Smoked: 3 - quit in 2007 e-Cigarette/Vaping Use: Never Used service: No Current occupational status: employed Current occupation: Carpentry Cognitive needs: No Hearing needs: No Vision needs: No Questionnaire Thrive Questionnaire Date Thrive assessed: 12/03/24 I am a: Patient What is your living situation today?: I have a steady place to live Within the past 12 months, did the food you bought not last and you didn't have the money to get more?: Never true Within the past 12 months, did you worry whether your food would run out before you got money to buy more?: Never true Do you have trouble paying for medicines?: No Do you have trouble getting transportation to medical appointments?: No Do you have trouble paying your heating and electricity bill?: Yes Do you have trouble taking care of your child, family member or friend?: No Do you have trouble with day-to-day activities such as bathing, preparing meals, shopping, managing finances, etc.?: No Are you currently unemployed and looking for a job?: Yes Are you interested in more education?: No Please select the resources that you would like help with: None Currently or been in a relationship where the following occur: No concerns reported THRIVE Score: 1 IZZY-7 AMB Questionnaire IZZY-7 Date IZZY - 7 assessed: 12/03/24 Source: Developed by Drs. Regan Padilla, Jenny Blakely, Rosendo Amador and colleagues, with an educational teagan from [email or web address]. Review of Systems Const Denies chills, Denies fatigue, Denies fever(s), Denies headache(s), Denies malaise and Denies weakness Eyes Denies blurry vision, Denies change in vision, Denies irritation and Denies itchy eyes ENT Denies dysphagia, Denies dizziness, Denies otalgia, Denies headache(s), Denies nasal congestion, Denies neck pain, Denies odynophagia and Denies sore throat Card Denies chest pain, Denies rapid heart rate, Denies irregular heart rhythm, Denies palpitations and Denies dyspnea Resp Denies chest congestion, Denies cough, Denies dyspnea and Denies wheezing GI Denies abdominal pain, Denies bloating, Denies constipation, Denies dysphagia, Denies heartburn, Denies diarrhea, Denies nausea, Denies odynophagia and Denies vomiting Denies hematuria, Denies difficulty urinating, Denies dysuria, Denies urinary frequency and Denies urinary urgency Musc Denies back pain, Reports arthralgias (in the left ankle and left foot - chronic), Denies joint swelling, Denies muscle weakness and Denies neck pain Skin/Breast Denies change in pigmentation, Denies lesions, Denies rash and Denies unusual bruising Neuro Denies dizziness, Denies headache(s), Denies paresthesias and Denies weakness Endo Denies fatigue and Denies palpitations Aller/Immun Denies itchy eyes and Denies wheezing Physical exam (Primary Care) Vital Signs: Last Vital Signs Temp 97.1 F 02/10/25 10:35 Pulse 80 02/10/25 10:35 Resp 18 02/10/25 10:35 BP 132/68 02/10/25 10:35 Pulse Ox 96 02/10/25 10:35 Oxygen Delivery Method Room Air 02/10/25 10:35 BMI result Body Mass Index 38.0 Tobacco/Smoking Status: Tobacco use Status Tobacco use date assessed 02/10/25 02/10/25 10:38 Patient Tobacco Use Status Former Tobacco user 02/10/25 10:37 Tobacco use type Cigarette 02/10/25 10:37 e-Cigarette/Vaping Use Never Used 02/10/25 10:37 Thrive Assessment: Date of Thrive Assessment Date Thrive assessed 12/03/24 02/10/25 10:37 Currently or been in a relationship where the following occur: No concerns reported Const General: no acute distress and alert HENMT Ears: TM's normal bilaterally and EAC's normal Throat: Yes posterior oropharynx normal and Yes tonsils normal (no TP congestion) Neck Neck: Yes supple and No lymphadenopathy Thyroid: Thyroid normal Resp Auscultation: clear to auscultation bilaterally, no rales and no wheezes Cardio Rate: regular rate Rhythm: regular rhythm Heart sounds: no murmurs GI Palpation (GI): Soft to palpation and nontender Auscultation: normal bowel sounds General: Yes no CVA tenderness Back/Spine/Pelvis Back: no CVA tenderness Thoracic/Lumbar Spine: No lumbar spinal tenderness Skin Rashes: no rashes Extrem General: Yes no clubbing, cyanosis or edema Left lower extremity: ankle Details: tenderness Location: anteromedially and anterolaterally; no swelling and foot Details: tenderness (mild) Location: of the medial foot Location: in the mid-section and no edema Results Reviewed Results Reviewed: Laboratory Tests 02/08/25 02/08/25 09:07 09:08 WBC 5.6 Hgb 14.9 Hct 45.3 Plt Count 217 Sodium 141 Potassium 4.0 Creatinine 1.09 Estimated GFR > 60 Fasting Glucose 110 H Calcium 8.7 AST 26 ALT 54 H Triglycerides 144 Cholesterol 201 H LDL Cholesterol, Calc 143 H HDL Cholesterol 30 L 25-OH Vitamin D Total 21.7 L TSH 1.32 Urine pH 5.5 Ur Specific [place] >= 1.030 H Urine Protein Negative Urine Glucose (UA) Negative Urine Blood Negative Urine Nitrite Negative Ur Leukocyte Esterase Negative Coding Level of Care Code Est Pt Prev Care 18-39y(61294) Diagnoses Annual physical exam Z00.00 Mixed hyperlipidemia E78.2 Impaired fasting glucose R73.01 Elevated LFTs R79.89 Vitamin D deficiency E55.9 Left foot pain M79.672 Acute left ankle pain M25.572 Chronicity: acute Obesity (BMI 30-39.9) E66.9 Assessment & Plan Assessment & Plan (1) Annual physical exam: Code(s): Z00.00 - Encounter for general adult medical examination without abnormal findings Category: Medical Plan: Results of his labs done a couple of days ago reviewed and discussed with patient (2) Mixed hyperlipidemia: Code(s): E78.2 - Mixed hyperlipidemia Category: Medical Plan: Patient is advised that his cholesterol numbers have improved slightly from previous Reinforced low cholesterol diet Will have him recheck his labs and fasting lipids in 6 months for follow up (3) Impaired fasting glucose: Code(s): R73.01 - Impaired fasting glucose Category: Medical Plan: His FBS was up at 110 mg/dl on his recent labs; HgbA1c was normal at 5.7% when previously checked back in January 2024 Reinforced low calorie/low carb diet Will recheck his FBS and HgbA1c in 6 months for follow up (4) Elevated LFTs: Code(s): R79.89 - Other specified abnormal findings of blood chemistry Category: Medical Plan: His LFTs are improving on his recent labs but his serum ALT is still slightly high Advised again that these are most likely related to his weight (hepatosteatosis) and should improve with weight loss Will continue to monitor his LFTs regularly (5) Vitamin D deficiency: Code(s): E55.9 - Vitamin D deficiency, unspecified Category: Medical Plan: He is advised that his Vitamin D level is still low on his recent labs Continue Vitamin D3 2000 units QD (6) Left foot pain: Code(s): M79.672 - Pain in left foot Category: Medical Plan: X-rays of the left ankle done back in January 2024 revealed (+) radiopaque curvilinear object noted along the medial midfoot measuring 4 mm As his left foot and left ankle have been bothering him for some time now, will refer him to podiatry for further evaluation and management (7) Left ankle pain: Code(s): M25.572 - Pain in left ankle and joints of left foot Category: Medical Qualifiers: Chronicity: acute Qualified Code(s): M25.572 - Pain in left ankle and joints of left foot Plan: Will refer him to podiatry for further evaluation and management (8) Obesity (BMI 30-39.9): Code(s): E66.9 - Obesity, unspecified Category: Medical Plan: Reinforced diet/exercise as tolerated/lose weight Plan Follow up in 6 months Orders: Orders Complete Blood Count Auto Diff 6 Months D64.9 - Anemia, unspecified Comprehensive [place]. Panel Fast 6 Months E78.00 - Pure hypercholesterolemia, unspecified Hemoglobin A1c 6 Months R73.01 - Impaired fasting glucose Vitamin D 25-OH Total 6 Months E55.9 - Vitamin D deficiency, unspecified Lipid Panel 6 Months E78.00 - Pure hypercholesterolemia, unspecified TSH reflex Free T4 6 Months E78.00 - Pure hypercholesterolemia, unspecified UA CC w/rflx Micro + Cult 6 Months R30.0 - Dysuria Referrals Podiatry Referral M25.572 - Pain in left ankle and joints of left foot
--- OUTSIDE RECORDS SUMMARY | 2025-02-10 13:21 | XMS_ITS | Clinical Summary ---
Author Organization [employer] Address [address] [place] [address] [address] [place] [address] Care Team Providers Care News Content Specialist Name Role Phone Unavailable Primary Care Provider [...]
--- OUTSIDE RECORDS SUMMARY | 2025-02-10 13:21 | XMS_ITS | Encounter Summary ---
Author Organization [employer] Address [address] [place] [address] 7 [place] [address] Care Team Providers Care Lead Pharmacy Technician Name Role Phone Unavailable Primary Care Provider [...]
== END 2025-02-10 11:28 | disposition home or self-care (01) ==
LOC: HO.HMCH 10:33
PROVIDERS: PCP Internal Medicine; Visit Provider Internal Medicine
DX: Z00.00 Encounter for general adult medical examination without abnormal findings (principal); E78.2 Mixed hyperlipidemia; E66.9 Obesity, unspecified; Z68.38 Body mass index [BMI] 38.0-38.9, adult; R73.01 Impaired fasting glucose; R79.89 Other specified abnormal findings of blood chemistry; E55.9 Vitamin D deficiency, unspecified; M79.672 Pain in left foot; M25.572 Pain in left ankle and joints of left foot

== ENCOUNTER → 2025-02-10 10:32 | Outpatient (BNVA) | payer OTHER, SELFPAY | PROVIDERS: PCP Internal Medicine; Visit Provider Internal Medicine | DX: Z00.00 Encounter for general adult medical examination without abnormal findings (principal); M25.572 Pain in left ankle and joints of left foot; E78.2 Mixed hyperlipidemia; R73.01 Impaired fasting glucose; R79.89 Other specified abnormal findings of blood chemistry; E55.9 Vitamin D deficiency, unspecified; M79.672 Pain in left foot; E66.9 Obesity, unspecified; E78.00 Pure hypercholesterolemia, unspecified; R30.0 Dysuria; Z68.38 Body mass index [BMI] 38.0-38.9, adult | CPT/HCPCS: 99395 ==

== ENCOUNTER 2025-03-09 09:48 | Outpatient (AMB) | payer OTHER, SELFPAY ==
[2025-03-09 09:57] VITALS: BMI 37.9
--- NOTE | 2025-03-09 09:57 | A.OFFVIS_ITS ---
Vital Signs 03/09/25 09:57 Height 5 ft 9 in Weight 257 lb BMI 37.9 Intake Visit Reasons: Left foot ankle pain Intake Note: Rosalio is a 39 year old male who presents today as a new patient for an evaluation of his left ankle pain. Patient reports the pain has been going on for about 6-7 months and his pain is located on the lateral aspect. He has tried OTC ibuprofen and the icy hot spray and has found no relief for his symptoms. Patient notices when he moves his ankle he feels a locking sensation. No imaging has been done recently Allergies No Known Allergies (No Known Allergies*) Allergy (Verified 02/10/25 11:07) HPI Comments Details: The patient is a 39-year-old male with a PMH as seen below presenting with left ankle pain and instability. The patient reports persistent pain primarily on the lateral aspect of the ankle, which has been present for approximately 6 to 7 months. The pain is described as sharp and is exacerbated by ambulation and range of motion of the ankle. Patient states he is unable to pinpoint a specific event that caused injury. He reports a sensation of instability and weakness in the left ankle, particularly when stepping on uneven surfaces, leading to a loss of balance. The patient denies any recent trauma but notes that the left ankle feels different compared to the right ankle. Patient states he notices his left ankle locks up and also notices a cracking sensation. The patient has not used any supportive devices such as an ankle brace previously and has taken ibuprofen as needed for pain. He denies any other pedal concerns. [facility] Medical History (Updated 03/09/25 @ 10:19 by Nery Camargo DPM) Chronic instability of ankle Left ankle sprain Vitamin D deficiency Mixed hyperlipidemia Impaired fasting glucose Obesity (BMI 30-39.9) Cholecystitis without cholelithiasis Surgical History Hx laparoscopic cholecystectomy (~2017) Family History Father Diabetes mellitus Mother Anemia Social History Housing: House Patient Tobacco Use Status: Former Tobacco user Tobacco use type: Cigarette Years Smoked: 3 - quit in 2007 e-Cigarette/Vaping Use: Never Used service: No Current occupational status: employed Current occupation: Carpentry Cognitive needs: No Hearing needs: No Vision needs: No Review of Systems Const Details: - Musculoskeletal: Reports sharp left ankle pain, instability, and weakness. Denies swelling. - Neurological: Denies numbness, tingling, or burning sensations. All systems reviewed & are unremarkable except as noted in HPI and below Physical Exam Vital Signs: BMI result Body Mass Index 37.9 Extrem Other: Left lower extremity focused physical exam: Derm: No open lesions abrasions or wounds noted. No clinical signs of infection. No ecchymosis or discoloration noted. Skin supple and turgor within normal limits. Vascular: DP/PT pulses palpable. Capillary refill time less than 3 seconds. Temperature gradient warm to warm. Pedal hair present. No varicosities noted. Mild edema noted to the lateral aspect of the ankle. Neuro: Protective sensation is grossly intact. MSK: Pain on palpation to the lateral gutter of the ankle. Pain on palpation along the lateral ankle ligaments. Range of motion of the ankle slightly reduced. Crepitus noted. No fluctuance noted. Mildly antalgic gait unassisted noted. Range of motion of the forefoot within normal limits. Pain with range of motion of ankle worse with inversion and eversion. Results Reviewed Results Reviewed: Ordered left ankle weightbearing three-view x-rays to be performed prior to next visit. Assessment & Plan Assessment & Plan (1) Left ankle pain: Code(s): M25.572 - Pain in left ankle and joints of left foot Category: Medical Qualifiers: Chronicity: acute Qualified Code(s): M25.572 - Pain in left ankle and joints of left foot (2) Left ankle sprain: Code(s): S93.402A - Sprain of unspecified ligament of left ankle, initial encounter Category: Medical (3) Chronic instability of ankle: Code(s): M25.373 - Other instability, unspecified ankle Category: Medical Plan Patient was informed and verbally consented to the use of an ambient scribe for clinic note documentation during this visit. I discussed with the patient the likely diagnosis of a chronic ankle instability to the left ankle with potential injury to the lateral ankle ligaments. We reviewed the treatment plan, including the use of meloxicam for pain relief and a lace-up stabilizing ankle brace for support. I explained the importance of physical therapy in strengthening the ankle and improving range of motion. We also discussed the need for x-rays to rule out fractures and the potential for an MRI if symptoms do not improve, which may indicate the need for surgical intervention. I informed the patient about the follow-up appointment in two weeks to reassess his condition and adjust the treatment plan as necessary. - prescribed meloxicam for pain management, and advised patient to not take ibuprofen and meloxicam at the same time. - provided patient with a lace-up stabilizing ankle brace. - provided PT referral. - Order x-rays to be performed prior to next visit. - advised patient to wear supportive shoe gear to avoid barefoot walking. - patient may continue rice protocol. - Plan for an MRI and/or injection if symptoms persist or worsen. RTC in 2 weeks. Orders: Orders XR ankle LT min 3V Today M25.572 - Pain in left ankle and joints of left foot, S93.402A - Sprain of unspecified ligament of left ankle, initial encounter PT Evaluation and Treatment Today M25.572 - Pain in left ankle and joints of left foot, S93.402A - Sprain of unspecified ligament of left ankle, initial encounter Medications: New meloxicam 15 mg PO DAILY 30 tabs 0RF M25.572 - Pain in left ankle and joints of left foot, S93.402A - Sprain of unspecified ligament of left ankle, initial encounter On Hold ibuprofen Hold Comment: Doctor's Order 600 mg PO Q6H PRN 20 tabs 0RF pain Coding Level of Care Code New Pt Level 4 (32642) Diagnoses Acute left ankle pain M25.572 Chronicity: acute Left ankle sprain S93.402A Chronic instability of ankle M25.373 Time Spent (min) 50
== END 2025-03-09 10:30 | disposition home or self-care (01) ==
LOC: HO.HPODS 09:48
PROVIDERS: PCP Internal Medicine; Visit Provider Student in an Organized Health Care Education/Training Program
DX: M25.572 Pain in left ankle and joints of left foot (principal); S93.402A Sprain of unspecified ligament of left ankle, initial encounter; M25.373 Other instability, unspecified ankle
CPT/HCPCS: 99204

== ENCOUNTER → 2025-03-09 09:48 | Outpatient (BNVA) | payer OTHER, SELFPAY | PROVIDERS: PCP Internal Medicine; Visit Provider Student in an Organized Health Care Education/Training Program | DX: S93.402A Sprain of unspecified ligament of left ankle, initial encounter (principal); M25.372 Other instability, left ankle | CPT/HCPCS: 99202 ==

== ENCOUNTER 2025-03-29 08:39 | Outpatient (REF) | payer OTHER, SELFPAY ==
--- NOTE | ~2025-03-29 | XR_ITS ---
EXAMINATION: XR ANKLE, LEFT CLINICAL INFORMATION: M25.572 - Pain in left ankle and joints of left foot COMPARISON: 02/10/2024. TECHNIQUE: AP, lateral, and mortise views of the left ankle. Views obtained weightbearing. FINDINGS: No fracture, dislocation, or suspicious bone lesion. Normal bone mineralization. Normal alignment. Mortise is intact. The talar dome is normal. Joint spaces are preserved. Subtalar joint is normal in appearance. No significant ankle joint effusion. Soft tissues appear normal. XR/XR ankle LT min 3V IMPRESSION: Normal left ankle. Electronically signed by: Valente Maya MD 03/29/2025 09:03 AM [facility]
== END 2025-03-29 08:40 | disposition home or self-care (01) ==
LOC: HO.XRAY 08:39
PROVIDERS: PCP Internal Medicine; Visit Provider Student in an Organized Health Care Education/Training Program
DX: S93.402A Sprain of unspecified ligament of left ankle, initial encounter (principal)
CPT/HCPCS: 73610

== ENCOUNTER → 2025-03-29 08:44 | Outpatient (BNV) | payer OTHER, SELFPAY | PROVIDERS: PCP Internal Medicine; Visit Provider Radiology Diagnostic Radiology | DX: M25.572 Pain in left ankle and joints of left foot (principal) | CPT/HCPCS: 73610 ==

== ENCOUNTER 2025-03-30 08:31 | Outpatient (AMB) | payer OTHER, SELFPAY ==
[2025-03-30 08:57] VITALS: BMI 37.9
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
== END 2025-03-30 09:01 | disposition home or self-care (01) ==
PROVIDERS: PCP Internal Medicine; Visit Provider Student in an Organized Health Care Education/Training Program
DX: M25.572 Pain in left ankle and joints of left foot (principal); S93.402A Sprain of unspecified ligament of left ankle, initial encounter; M25.373 Other instability, unspecified ankle
CPT/HCPCS: 99214

== ENCOUNTER → 2025-03-30 08:31 | Outpatient (BNVA) | payer OTHER, SELFPAY | PROVIDERS: PCP Internal Medicine; Visit Provider Student in an Organized Health Care Education/Training Program | DX: S93.402A Sprain of unspecified ligament of left ankle, initial encounter (principal); M25.373 Other instability, unspecified ankle; X58.XXXA Exposure to other specified factors, initial encounter; Y93.9 Activity, unspecified; Y92.9 Unspecified place or not applicable; Y99.9 Unspecified external cause status | CPT/HCPCS: 99212 ==